=== PATIENT | male | born 1970 | race Caucasian/White ===

== ENCOUNTER → 2016-06-28 | Outpatient (CLI) | payer OTHER ==
[~2016-06-28] MED LIST: ATV1HP PO; BSP15 PO; CARB1CAP8 PO; CUREL TOP; FBR PO; LACT10SO17; LACT10SO61 PO; LAMO200T38 PO; LEVE500T PO; LEVE500T13 PO; NYSCR30 TOP; PRNJ PO; SERT-234 PO; SODICRE2 PO; TGR200 PO; ZLF/100 PO; ZSRP TOP; [UNRECOGNIZED DRUG - OTHER] PO
== END | disposition home or self-care (01) ==
LOC: C.FOODA 13:32
PROVIDERS: ATTEND Family Medicine
DX: E66.9 Obesity, unspecified (principal)

== ENCOUNTER → 2016-07-31 | Outpatient (CLI) | payer OTHER ==
[2016-07-31 09:33] LABS: BASO % 0.2 %; BASO ABS # 0.01 K/uL (0-0.2); COMPLETE YES; EOS % 2.2 %; IG% 0.4 %; LYMPH % 35.3 %; LYMPH ABS # 1.59 K/uL (1.2-3.4); MEAN CELL VOLUME 88.6 fL (80-100); MEAN CORPUSCULAR HEMOGLOBIN 29.9 pg (25-34); MEAN CORPUSCULAR HGB CONC 33.7 g/dl (32-36); MEAN PLATELET VOLUME 9.1 fL (7.4-10.4); NEUT % 51.9 %; PLATELET COUNT 216 K/uL (130-400); RED BLOOD COUNT 5.19 M/uL (4.7-6.1); WHITE BLOOD COUNT 4.51 K/uL (4.8-10.8)
[2016-07-31 09:43] LABS: ALT/SGPT 28 U/L (12-78); BLOOD UREA NITROGEN 9 mg/dl (7-18); BUN/CREATININE RATIO 9.9 (10-20); CALCIUM 9.2 mg/dl (8.5-10.1); CARBON DIOXIDE 29 mmol/L (21-32); CHLORIDE 103 mmol/L (98-107); CREATININE 0.89 mg/dl (0.60-1.40); GLUCOSE 88 mg/dl (70-99); POTASSIUM 4.2 mmol/L (3.5-5.1); SODIUM 139 mmol/L (136-145)
[2016-07-31 09:46] LABS: ALKALINE PHOSPHATASE 118 U/L (45-117); AST/SGOT 22 U/L (15-37)
== END | disposition home or self-care (01) ==
LOC: C.LAB 07:27
PROVIDERS: ATTEND Psychiatry & Neurology Neurology
DX: G40.909 Epilepsy, unspecified, not intractable, without status epilepticus (principal)

== ENCOUNTER → 2016-09-03 | Outpatient (CLI) | payer OTHER | END | disposition home or self-care (01) | LOC: C.LABSPEC 13:15 | PROVIDERS: ATTEND Dermatology | DX: L98.9 Disorder of the skin and subcutaneous tissue, unspecified (principal) ==

== ENCOUNTER → 2016-09-06 | Outpatient (CLI) | payer OTHER | END | disposition home or self-care (01) | LOC: C.FOODA 13:37 | PROVIDERS: ATTEND Family Medicine | DX: E63.9 Nutritional deficiency, unspecified (principal) ==

== ENCOUNTER → 2016-11-29 | Outpatient (CLI) | payer OTHER | END | disposition home or self-care (01) | LOC: C.FOODA 13:01 | PROVIDERS: ATTEND Family Medicine | DX: E63.9 Nutritional deficiency, unspecified (principal) ==

== ENCOUNTER → 2017-01-16 | Outpatient (CLI) | payer OTHER ==
[2017-01-16 09:38] LABS: BASO % 0.4 %; BASO ABS # 0.02 K/uL (0-0.2); COMPLETE YES; EOS % 2.2 %; HEMATOCRIT 46.5 % (42-52); IG% 0.7 %; LYMPH % 42.9 %; LYMPH ABS # 1.92 K/uL (1.2-3.4); MEAN CELL VOLUME 89.6 fL (80-100); MEAN CORPUSCULAR HGB CONC 34.6 g/dl (32-36); MEAN PLATELET VOLUME 8.9 fL (7.4-10.4); MONO % 8.5 %; NEUT % 45.3 %; PLATELET COUNT 223 K/uL (130-400); RED BLOOD COUNT 5.19 M/uL (4.7-6.1); WHITE BLOOD COUNT 4.48 K/uL (4.8-10.8)
[2017-01-16 09:49] LABS: ALT/SGPT 29 U/L (12-78); BLOOD UREA NITROGEN 12 mg/dl (7-18); BUN/CREATININE RATIO 12.9 (10-20); CALCIUM 9.3 mg/dl (8.5-10.1); CARBON DIOXIDE 29 mmol/L (21-32); CHLORIDE 103 mmol/L (98-107); CREATININE 0.96 mg/dl (0.60-1.40); GLUCOSE 85 mg/dl (70-99); POTASSIUM 4.1 mmol/L (3.5-5.1); SODIUM 137 mmol/L (136-145)
[2017-01-16 09:59] LABS: ALB/GLOB RATIO 0.9 (0.9-2); ALKALINE PHOSPHATASE 104 U/L (45-117); AST/SGOT 19 U/L (15-37)
== END | disposition home or self-care (01) ==
LOC: C.LAB 07:21
PROVIDERS: ATTEND Psychiatry & Neurology Neurology
DX: G40.909 Epilepsy, unspecified, not intractable, without status epilepticus (principal)

== ENCOUNTER 2017-01-28 18:29 | Emergency (ER) | payer OTHER ==
[~2017-01-28] VITALS: Ht 162.6 cm; Wt 88.1 kg
[~2017-01-28 18:29] MED LIST changes: -CUREL TOP; -LACT10SO61 PO; -LEVE500T PO; -NYSCR30 TOP; -TGR200 PO; -ZLF/100 PO; -[UNRECOGNIZED DRUG - OTHER] PO
[2017-01-28 18:40] VITALS: Ht 162.6 cm; Wt 88.1 kg
[2017-01-28] MEDS ORDERED: LEVETIRACETAM 500 MG TAB PO STA ×2 (18:46→20:12)
[2017-01-28] MEDS ORDERED: CARBAMAZEPINE 200 MG TAB PO ONE (19:00)
--- NOTE | 2017-01-28 19:29 | DIAGNOSTIC IMAGING REPORT ---
CT HEAD WITHOUT CONTRAST (CT) CLINICAL HISTORY: Seizure. Head trauma. COMPARISON STUDY: 09/29/2015 TECHNIQUE: Axial CT of the brain is performed from the vertex to the skull base. IV contrast was not administered for this examination. A dose lowering technique was utilized adhering to the principles of ALARA. CT DOSE: 1277.67 mGy.cm FINDINGS: No intra or extra-axial mass lesions are visualized. There is no CT evidence of acute cortical infarction. There is no evidence of midline shift. There is no acute hemorrhage. No calvarial fractures are visualized. There is bifrontal and by occipital encephalomalacia. There is no evidence of pathologic ventricular dilatation. There is no evidence of acute sinusitis. There is a right parietal scalp hematoma. IMPRESSION: 1. 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 Right parietal scalp hematoma 3. No evidence of acute intracranial injury Electronically signed by: Lopez Rodriguez M.D. 01/28/2017 7:28 PM Dictated Date/Time: 01/28/2017 7:26 PM
[2017-01-28 20:08] VITALS: BP 130/89; PULSE 106; TEMP 36.7; O2SAT 98
[2017-01-28] MEDS ORDERED: ZLF/100 PO (20:38)
[2017-01-28] MEDS ORDERED: LACT10SO61 PO (20:38)
[2017-01-28] MEDS ORDERED: LEVE500T PO (20:38)
[2017-01-28] MEDS ORDERED: TGR200 PO (20:38)
[2017-01-28] MEDS ORDERED: BSP15 PO ×3 (20:38)
[2017-01-28] MEDS ORDERED: [UNRECOGNIZED DRUG - OTHER] PO (20:42)
[2017-01-28] MEDS ORDERED: CUREL TOP (20:49)
[2017-01-28] MEDS ORDERED: NYSCR30 TOP (20:49)
--- NOTE | 2017-01-28 21:49 | EMERGENCY ROOM VISIT NOTE ---
History Report prepared by Rina: Connor Barriga Under the Supervision of: Dr. Cr Denis M.D. First contact with patient: 18:37 Stated Complaint: SEIZURE History of Present Illness The patient is a 46 year old male who presents to the Emergency Room with complaints of a sudden seizure that occurred at 174. Per nursing, the patient is from [facility] where he had a seizure. Nursing reports that he has a history of seizures, which he typically takes Lamictal and Keppra for. She reports that the patient was due for his daily dose at 1800, but had a seizure before he could take his medications. The patient is accompanied by a [employer] skills worker who states that she was tending another patient when she heard him fall in his room. She states that she went to go check what happened when she found him on the bathroom floor. The skills worker reports that she went to put her hand behind his head when he turned stiff, clenched his chest with his left arm, started seizing, and his eyes started twitching. She states that the seizure lasted for 35 to 45 seconds, which is the longest seizure she witnessed him have. She reports that she is unaware of his last seizure. Nursing states that he hit his head on the partition in the bathroom and bit his tongue. Nursing states that he normally has a history of self- injurious behavior due to a history of developmental delay which is often triggered by anxiety. She states that since the seizure he has been hitting the back of his his head. Nursing states that he was given 2 mg of Ativan IM on his way via EMS. The patient has a history of being blind and mute, but is not deaf. The [employer] worker denies that the patient has had a fever or changing of medications. The HPI is limited due to the patient's condition of being mute. Source of History: caregiver, nursing staff History Limited By: other (mute) Onset: 1741 Position: other (Global) Quality: other (seizure) Timing: resolved Associated Symptoms: No fevers, No vomiting Review of Systems The ROS is limited due to the patient's condition of being mute. Past Medical & Surgical Medical Problems: (1) Anxiety disorder (2) Cortical blindness (3) Hearing loss (4) History of skin abscesses (5) Hyperlipidemia (6) Migraines (7) MR (8) Obesity (9) Optic atrophy (10) Pulse control disorder (11) Recurrent acne (12) Seizure disorder Family History Patient reports no known family medical history. Social History Smoking Status: Never Smoker Marital Status: single Housing Status: other Occupation Status: disabled Current/Historical Medications Scheduled Aldioxa/Cellulose/Chloroxylen (Zeasorb), 1 APPLN TOP QAM Buspirone HCl (Buspirone HCl), 15 MG PO QD@0800 Buspirone HCl (Buspirone HCl), 15 MG PO QD@1500 Buspirone HCl (Buspirone HCl), 30 MG PO QD@1900 Carbamazepine (Carbamazepine), 400 MG PO BID Lactulose (Encephalopathy) (Enulose), 2 TBS PO QAM Lamotrigine (Lamictal), 400 MG PO BID Levetiractam (Levetiracetam), 500 MG PO BID Sertraline HCl (Sertraline HCl), 200 MG PO QAM Sodium Fluoride (Dental) (Denta 5000 Plus), 1 DOSE PO BID [Fiber-Lax Captabs], 1,000 MG PO BID Scheduled PRN Lorazepam (Lorazepam), 1 MG PO UD PRN for Pretreat Dental Appointment Nystatin (Nystatin Cream), 1 APPLN TOP TID PRN for Yeast Infection [Curel Lotion], 1 APPLN TOP BID PRN for Dry Skin Allergies Coded Allergies: No Known Allergies (Unverified , 09/29/15) Physical Exam Vital Signs Date Time Temp Pulse Resp B/P (MAP) Pulse Ox O2 Delivery O2 Flow Rate FiO2 01/28/17 20:08 36.7 106 18 130/89 98 Room Air 01/28/17 18:40 97 21 141/94 98 Room Air Physical Exam Constitutional: Vital signs reviewed. Eyes: Pupils are equal and round. Conjunctiva are noninjected. ENT: Limited due to lack of cooperation. Neck supple without meningeal signs. Hematoma with abrasion to right occipital Respiratory: Clear to auscultation bilaterally. Breath sounds are equal bilaterally. Cardiovascular: Regular rate and rhythm. No rubs or gallops. GI: Soft, nondistended and nontender. Bowel sounds are present. Musculoskeletal: No peripheral edema. Abrasion to right trapezius. Integumentary: No cyanosis. Neurological: The patient is awake and alert. He keeps slapping his left arm with his right arm. Psychiatric: Unable to assess. Medical Decision & Procedures ER Provider Diagnostic Interpretation: CT results as stated below per my review and radiologist interpretation. CT HEAD WITHOUT CONTRAST (CT) CLINICAL HISTORY: Seizure. Head trauma. COMPARISON STUDY: 09/29/2015 TECHNIQUE: Axial CT of the brain is performed from the vertex to the skull base. IV contrast was not administered for this examination. A dose lowering technique was utilized adhering to the principles of ALARA. CT DOSE: 1277.67 mGy.cm FINDINGS: No intra or extra-axial mass lesions are visualized. There is no CT evidence of acute cortical infarction. There is no evidence of midline shift. There is no acute hemorrhage. No calvarial fractures are visualized. There is bifrontal and by occipital encephalomalacia. There is no evidence of pathologic ventricular dilatation. There is no evidence of acute sinusitis. There is a right parietal scalp hematoma. IMPRESSION: 1. 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 Right parietal scalp hematoma 3. No evidence of acute intracranial injury Electronically signed by: Lopez Rodriguez M.D. 01/28/2017 7:28 PM Dictated Date/Time: 01/28/2017 7:26 PM Medications Administered Medications (Trade) Dose Ordered Sig/Nasra Route Start Time Stop Time Status Last Admin Dose Admin Carbamazepine (Tegretol Tab) 400 mg NOW ONCE PO 01/28/17 19:00 01/28/17 19:01 DC 01/28/17 19:03 400 MG Lamotrigine (Lamictal Tab) 400 mg ONE STAT PO 01/28/17 18:46 01/28/17 18:48 DC 01/28/17 19:03 400 MG Levetiracetam (Keppra Tab) 500 mg NOW STAT PO 01/28/17 18:46 01/28/17 18:48 DC 01/28/17 19:03 500 MG Diphenhydramine HCl (Benadryl Cap) 50 mg NOW ONCE PO 01/28/17 19:15 01/28/17 19:16 DC 01/28/17 19:32 50 MG Levetiracetam (Keppra Tab) 500 mg NOW STAT PO 01/28/17 20:12 01/28/17 20:13 DC 01/28/17 20:23 500 MG ED Course 1846: Ordered Keppra Tab 500 mg PO and Lamictal Tab 400 mg PO. 1846: The patient was evaluated in room B06. A complete history and physical exam was performed. 1899: Ordered Tegretol Tab 400 mg PO. 1914: I reevaluated the patient now that the [employer] skills worker arrived. She reported the patient's history to me. I performed another physical exam with better cooperation from the patient. 1914: Ordered Benadryl Cap 50 mg PO. 1933: I discussed the test result with skills worker and the patient is calm. 2004: I discussed the patient's case with Dr. Gayle, [facility]. He suggests that I give the patient and extra dose of Keppra and increase his dosage to 750 mg BID. 2010: Upon reevaluation, the patient appeared to have improvement of his symptoms. I discussed tonight's findings with the patient and the skills worker. They verbalized agreement of the treatment plan. The patient was discharged home. 2011: Ordered Keppra Tab 500 mg PO. Medical Decision This is a 46-year-old male who presents with a seizure and head injury. Differential diagnosis includes intracranial hemorrhage, skull fracture, medication noncompliance, breakthrough seizure, concussion. I did perform a limited focused review of portions of the patient's old chart on the electronic medical record. The patient has had a recent visit on January 16 with unremarkable blood work, including Keppra and Lamictal levels of 5.1 and 10.4 respectively and a Carbamazepine level of 8.3. I did evaluate the patient as noted above. History and exam is somewhat limited due to lack of cooperation. I did treat the patient with oral Keppra, Lamictal and carbamazepine. He was also given Benadryl to help accommodate a CT scan. Seizure precautions were observed. I did order a CT of the head. I did review the images myself as well as the radiology report as described above. There is no evidence of intracranial hemorrhage. I did discuss the case with Dr. Gayle of neurology. He recommended increasing his Keppra to 750 twice a day and giving him an extra dose of 500 tonight. The patient was given an additional 500 mg of Keppra. He was discharged back to his longterm with his caregiver. Instructions were given in writing to the longterm. He will follow up with his doctor. Medication Reconcilliation Current Medication List: was personally reviewed by me Blood Pressure Screening Patient's blood pressure: Elevated blood pressure Blood pressure disposition: Elevated BP felt to be situational Consults Time Called: 2004 Consulting Physician: Dr. Gayle, [facility] Returned Call: 2004 I discussed the patient's case with Dr. Gayle, [facility]. He suggests that I give the patient and extra dose of Keppra and increase his dosage to 750 mg BID. Impression Primary Impression: Seizure Additional Impression: Acute head injury Scribe Attestation The scribe's documentation has been prepared under my direct and personally reviewed by me in its entirety. I confirm that the note above accurately reflects all work, treatment, procedures, and medical decision making performed by me. Departure Information Dispostion Home / Self-Care Referrals Fernando Mendez D.O.[facility] (PCP) Forms HOME CARE DOCUMENTATION FORM, IMPORTANT VISIT INFORMATION Patient Instructions ED Head Injury Closed, ED Seizure Recurrent, My [facility] Additional Instructions You have been examined and treated today on an emergency basis only. This is not a substitute for, or an effort to provide, complete comprehensive medical care. It is impossible to recognize and treat all injuries or illnesses in a single emergency department visit. It is therefore important that you follow up closely with your physician. Call as soon as possible for an appointment. Return for worsening symptoms or if you develop fever, vomiting, significant change in mental status or any other concerning symptoms. He was given his evening carbamazepine, Keppra and Lamictal. You may give all other evening meds. Increase his Keppra to 750 twice a day. Keep doses of carbamazepine and Lamictal the same. Problem Qualifiers Additional Impression: Acute head injury Encounter type: initial encounter Qualified Codes: S09.90XA - Unspecified injury of head, initial encounter
== END 2017-01-28 20:45 | disposition home or self-care (01) ==
LOC: EDBD 18:29 → C.EDB 18:31
DX: G40.909 Epilepsy, unspecified, not intractable, without status epilepticus (principal); S09.90XA Unspecified injury of head, initial encounter; W19.XXXA Unspecified fall, initial encounter; E78.5 Hyperlipidemia, unspecified; F41.9 Anxiety disorder, unspecified; Z79.899 Other long term (current) drug therapy

== ENCOUNTER → 2017-02-12 | Outpatient (CLI) | payer OTHER ==
[~2017-02-12] MED LIST changes: -CARB1CAP8 PO; +CUREL TOP; -FBR PO; -LACT10SO17; +LACT10SO61 PO; +LEVE500T PO; -LEVE500T13 PO; +NYSCR30 TOP; -PRNJ PO; -SERT-234 PO; +TGR200 PO; +ZLF/100 PO; +[UNRECOGNIZED DRUG - OTHER] PO
== END | disposition home or self-care (01) ==
LOC: C.LAB 07:47
PROVIDERS: ATTEND Physician Assistant
DX: G40.909 Epilepsy, unspecified, not intractable, without status epilepticus (principal)

== ENCOUNTER → 2017-06-03 | Outpatient (CLI) | payer OTHER ==
[~2017-06-03] MED LIST changes: +LAMO200T35 PO; -LAMO200T38 PO
[2017-06-03 09:40] LABS: BASO % 0.2 %; BASO ABS # 0.01 K/uL (0-0.2); COMPLETE YES; EOS % 2.3 %; HEMATOCRIT 47.3 % (42-52); IG% 0.6 %; LYMPH ABS # 1.75 K/uL (1.2-3.4); MEAN CELL VOLUME 89.6 fL (80-100); MEAN CORPUSCULAR HEMOGLOBIN 30.9 pg (25-34); MEAN CORPUSCULAR HGB CONC 34.5 g/dl (32-36); MEAN PLATELET VOLUME 9.7 fL (7.4-10.4); MONO % 8.2 %; NEUT % 52.7 %; PLATELET COUNT 225 K/uL (130-400); RED BLOOD COUNT 5.28 M/uL (4.7-6.1); WHITE BLOOD COUNT 4.86 K/uL (4.8-10.8)
[2017-06-03 10:08] LABS: ALT/SGPT 26 U/L (12-78); AST/SGOT 18 U/L (15-37); BLOOD UREA NITROGEN 12 mg/dl (7-18); BUN/CREATININE RATIO 13.6 (10-20); CALCIUM 8.7 mg/dl (8.5-10.1); CARBON DIOXIDE 30 mmol/L (21-32); CHLORIDE 99 mmol/L (98-107); CREATININE 0.86 mg/dl (0.60-1.40); GLUCOSE 85 mg/dl (70-99); POTASSIUM 3.8 mmol/L (3.5-5.1); SODIUM 133 mmol/L (136-145)
[2017-06-03 10:10] LABS: ALKALINE PHOSPHATASE 105 U/L (45-117)
== END | disposition home or self-care (01) ==
LOC: C.LAB 07:15
PROVIDERS: ATTEND Psychiatry & Neurology Neurology
DX: G40.909 Epilepsy, unspecified, not intractable, without status epilepticus (principal)

== ENCOUNTER → 2017-07-16 | Outpatient (CLI) | payer OTHER ==
[2017-07-16 09:53] LABS: ALBUMIN 4.2 gm/dl (3.4-5.0); ALT/SGPT 25 U/L (12-78); BLOOD UREA NITROGEN 10 mg/dl (7-18); CALCIUM 9.1 mg/dl (8.5-10.1); CARBON DIOXIDE 30 mmol/L (21-32); GLUCOSE 101 mg/dl (70-99); POTASSIUM 3.8 mmol/L (3.5-5.1); SODIUM 133 mmol/L (136-145)
[2017-07-16 10:04] LABS: ALKALINE PHOSPHATASE 112 U/L (45-117); AST/SGOT 20 U/L (15-37); TOTAL PROTEIN 8.6 gm/dl (6.4-8.2)
== END | disposition home or self-care (01) ==
LOC: C.LAB 07:42
PROVIDERS: ATTEND Psychiatry & Neurology Neurology
DX: G40.909 Epilepsy, unspecified, not intractable, without status epilepticus (principal)

== ENCOUNTER → 2017-08-15 | Outpatient (CLI) | payer OTHER | END | disposition home or self-care (01) | LOC: C.FOODA 13:43 | PROVIDERS: ATTEND Family Medicine | DX: E63.9 Nutritional deficiency, unspecified (principal); E66.9 Obesity, unspecified; Z68.32 Body mass index [BMI] 32.0-32.9, adult; Z71.3 Dietary counseling and surveillance ==

== ENCOUNTER → 2018-01-15 | Outpatient (CLI) | payer OTHER | END | disposition home or self-care (01) | LOC: C.LAB 07:18 | PROVIDERS: ATTEND Psychiatry & Neurology Neurology | DX: G40.909 Epilepsy, unspecified, not intractable, without status epilepticus (principal) ==

== ENCOUNTER → 2018-01-30 | Outpatient (CLI) | payer OTHER ==
[2018-01-30 12:14] LABS: BASO % 0.2 %; BASO ABS # 0.01 K/uL (0-0.2); EOS % 1.7 %; EOS ABS # 0.08 K/uL (0-0.5); HEMATOCRIT 44.2 % (42-52); HEMOGLOBIN 15.4 g/dL (14.0-18.0); IG# 0.03 K/uL (0.00-0.02); LYMPH % 33.5 %; LYMPH ABS # 1.55 K/uL (1.2-3.4); MEAN CELL VOLUME 88.9 fL (80-100); MEAN CORPUSCULAR HGB CONC 34.8 g/dl (32-36); MEAN PLATELET VOLUME 8.7 fL (7.4-10.4); MONO % 10.4 %; MONO ABS # 0.48 K/uL (0.11-0.59); NEUT % 53.6 %; NEUT ABS # 2.47 K/uL (1.4-6.5); PLATELET COUNT 212 K/uL (130-400); RED CELL DISTRIBUTION WIDTH CV 13.5 % (11.5-14.5); WHITE BLOOD COUNT 4.62 K/uL (4.8-10.8)
== END | disposition home or self-care (01) ==
LOC: C.LAB 10:48
PROVIDERS: ATTEND Physician Assistant
DX: Z79.899 Other long term (current) drug therapy (principal); N39.46 Mixed incontinence

== ENCOUNTER 2023-01-16 16:56 | Observation (INO) ==
[2023-01-16] MEDS ORDERED: SODIUM CHLORIDE 0.9% 1000ML 1,000 ML IV ONE (17:24)
--- NOTE | 2023-01-16 17:24 | ED Triage Note ---
Date of Service January 16, 2023 History of Present Illness This patient was briefly evaluated while in triage. An abbreviated physical exam was performed. This patient is a 52-year-old Male who presents to the ED from [facility] for evaluation of fever and tremors in the left side of his body. Staff from [facility] reports that the tremor is new for him and that he has been putting his hands to his head which usually means he is in pain. Physical Exam VITALS: Vitals are noted on the nurse's note and reviewed by myself. GENERAL: This is a 52-year-old male, sitting in wheelchair in triage. SKIN: The skin was without rashes. MOUTH: Mucus membranes dry. HEART: Regular rate and rhythm without murmurs gallops or rubs. LUNGS: Clear to auscultation bilaterally without wheezes, rales or rhonchi. ABDOMEN: Positive bowel sounds x 4. Soft, nondistended. NEURO: Patient is nonverbal which is his baseline according to accompanying staff. Initial orders for labs and / or imaging were placed and patient was placed in the waiting area until a bed is available. Please see further documentation for the full ED course.
--- NOTE | 2023-01-16 18:15 | Emergency Department Note ---
Impression & Plan Fever, Acute UTI (urinary tract infection), Gait instability, SIRS (systemic inflammatory response syndrome) ED Provider Note HISTORY OF PRESENT ILLNESS: Patient is a 52-year-old male presenting with fever. Patient is nonverbal at baseline secondary to intellectual disability and his caretakers at his home provide history. Reports that the patient was acting more lethargic today than his normal. They noted that his temperature was elevated and his fever continued throughout the day. He was last given Tylenol at 1500 today. Reports that over the last 24 hours the patient has had multiple episodes of urinary incontinence. They report that today the patient seemed to be having full body tremors described as rigors. He was also having difficulties ambulating with his elevated temperature. No reported sick contact exposures. No rashes. No nausea, vomiting or diarrhea. ROS: as above PHYSICAL EXAM: Constitutional: Patient appears in no distress. HENT: Head: Normocephalic and atraumatic. Eyes: EOMI, PERRL Mouth/Throat: Mucous membranes moist. Neck: Trachea midline. Neck supple. Cardiovascular: Tachycardic with regular rhythm. No murmurs, rubs or gallops. Intact distal pulses. Pulmonary/Chest: No respiratory distress. Breath sounds clear and equal bilaterally. No wheezes or rales. Abdominal: Abdomen soft, no tenderness, rebound or guarding. Musculoskeletal: No edema, tenderness or deformity noted. Skin: Warm and dry. No rash, erythema, pallor or cyanosis Neurological: Alert. CN II-XII grossly intact. Moves all extremities spontaneously. MDM: - Vitals signs showed fever and tachycardia - History obtained via patient's caretakers, given his nonverbal status. Patient presents with fever and gait instability. Caretakers reports that the patient was more lethargic today than his normal self. They noted that he had recurrent fever throughout the day. He was last given Tylenol at 1500. Reports the patient has multiple episodes of urinary incontinence over the last 24 hours. They report he was noted to be very unstable on his feet today and was having notable rigors. - Chronic conditions affecting care: nonverbal; HLD; seizure disorder - Differential diagnoses include, but are not limited to: UTI; pneumonia; bacteremia; viral syndrome - Order placed for continuous cardiac monitoring. At this time, monitor showed rate of 111 bpm with normal sinus rhythm, per my interpretation. - External medical records reviewed. Primary care note from 10/05/2022 was reviewed. Patient is noted to have balance issues and frequent falls on PCP note - Laboratory workup interpreted by myself showed leukocytosis (WBC 11.75); slight hyponatremia (Na 132); normal lactate - Respiratory viral panel negative - UA obtained via straight cath shows evidence of infection. - Blood cultures obtained. - CXR negative for pneumonia, per my interpretation. - CT abdomen/pelvis wo contrast showed findings concerning for cystitis - Patient given 1L NS, and 1g IV rocephin - Discussion was had with social psychologist about patient's case and need for admission - Hospitalist, Dr. Bradley, consulted for admission - Patient admitted to [facility] service for further evaluation and management. ASSESSMENT AND PLAN: Diagnosis: Fever; tachycardia; SIRS; UTI; gait instability Plan: admit Past Med/Surg History Medical History (Updated 01/16/23 @ 23:30 by Suly Saenz MD) Acquired intellectual disability Anxiety Cortical blindness Cyst ON SCALP Depression Diverticulitis Epilepsy Gastritis GERD (gastroesophageal reflux disease) Hearing deficit Hiatal hernia History of seizure Date of last seizure unknown, information obtained by nurse from [facility] records Hyperlipidemia Impulse control disorder Microcephaly Nonverbal History provided by [facility] facility Strabismus Surgical History History of colonoscopy History of esophagogastroduodenoscopy (EGD) No history of previous surgery Family History Other Family history of diabetes mellitus Heart disease Unknown family medical history Social History Smoking Status: Unknown if ever smoked Second Hand Exposure: No; Do You Dip or Chew Tobacco: No; Hx Alcohol Use: No Hx Substance Use: No Preferred Language: Frisian Communication Ability: Impaired Communication Tools: Physical Gestures Visual Impairment: Blindness Hearing Ability: Normal 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 Beliefs That Will Affect Care: None marital status: Single Current Living Situation: Personal Care Facility Current Living Situation Comment: [facility] current occupational status: unemployed and disabled Feels Safe at Home: Yes Childhood Exposure to Second-Hand Smoke: No Diet: other Diet Comment: Chopped caffeine: No during the past year weight has: increased > 10 lbs Dental Care, Regularly: Yes Physical Activity Frequency: 1-2 Times per Week Seatbelt Use: always Sunscreen Use: Yes Assistive Devices: Wheelchair Allergies Allergies Allergy/AdvReac Type Severity Reaction Status Date / Time NSAIDS (Non-Steroidal AdvReac Intermediate Gastrointestinal Verified 01/16/23 19:33 Anti-Inflamma Upset Home Meds Home Medications Medication Instructions Recorded Confirmed fluoxetine 40 mg capsule 80 mg PO QPM 01/01/20 01/16/23 lorazepam 2 mg tablet 2 mg PO DIRECTED PRN 05/05/20 01/16/23 premedication for Dentist lorazepam 0.5 mg tablet 0.5 mg PO BID 10/04/20 01/16/23 buspirone 15 mg tablet See Rx Instructions .Route .COMPLEX 11/02/21 01/16/23 fluoride (sodium) 1.1 % dental 1 applic dental BID 11/02/21 01/16/23 cream (Denta 5000 Plus) acetaminophen 500 mg tablet 500 mg PO Q6H PRN Fever Or Pain 07/04/22 01/16/23 (Tylenol Extra Strength) lorazepam 1 mg tablet (Ativan) 1 mg sublingual DIRECTED PRN 07/04/22 01/16/23 before blood work docusate sodium 100 mg capsule 100 mg PO TIDM 01/16/23 01/16/23 lamotrigine 200 mg tablet 400 mg PO BIDM 01/16/23 01/16/23 levetiracetam 750 mg tablet 750 mg PO BIDM 01/16/23 01/16/23 magnesium hydroxide 400 mg/5 mL 15 ml PO DAILY PRN stomach upset 01/16/23 01/16/23 oral suspension (Milk of Magnesia) neomycin-bacitracn Zn-polymyx 3.5 1 applic topical TID PRN NEEDED 01/16/23 01/16/23 mg-400 unit-5,000 unit/gram top FOR SCRATCHES/WOUNDS oint (Triple Antibiotic) pantoprazole 40 mg tablet,delayed 40 mg PO QAM 01/16/23 01/16/23 release sodium chloride 1,000 mg soluble 1,000 mg PO BIDM 01/16/23 01/16/23 tablet Previous Rx's Medication Instructions Recorded Highback manual wheelchair #1 ea 08/31/21 Wheelchair (Manual) (Manual #1 ea 08/31/21 Wheelchair) Batsheva Sling #1 ea 09/14/22 Batsheva lift #1 ea 09/20/22 atorvastatin 10 mg tablet 10 mg PO QPM #90 tabs 11/20/22 carbamazepine 200 mg tablet 400 mg PO BIDM #120 tabs 11/20/22 famotidine 40 mg tablet 40 mg PO HS #90 tabs 11/20/22 lactulose 10 gram/15 mL oral 30 ml PO TID Constipation #2,700 mL 11/27/22 solution psyllium husk 3 gram/5.4 gram oral 1 tbsp PO DAILY@1500 #284 grams 11/27/22 powder (Reguloid (psyllium husk)) miconazole nitrate 2 % topical 1 applic topical BID #85 grams 11/28/22 powder (Remedy Phytoplex Antifungal) Neosporin Plus Pain Relief 3.5 1 applic topical TID PRN 12/12/22 mg-10,000 unit-10 mg/gram topical disinfection #28.3 grams cream (zqeuaasz-eqedifruo-lglnvfcqj) glycerin (adult) (Fleet Glycerin 1 supp MN DIRECTED PRN 12/12/22 (Adult) rectal suppository) Constipation #25 ea menthol 0.44 %-zinc oxide 20.6 % 1 applic topical QID PRN skin 12/12/22 topical ointment (Calmoseptine) irritation #113 grams Results & Data (ED) Vital Signs Vital Signs - 24 hr 01/16/23 17:18 01/16/23 18:24 01/16/23 18:19 Temperature 39.5 C H Temperature Source Oral Pulse Rate 111 H 112 H Pulse Rate [Apical] Respiratory Rate 24 Respiratory Effort / Characteristics Non-Labored Spontaneous Respiratory Depth Normal Blood Pressure 106/64 135/71 Blood Pressure [Left Arm] Blood Pressure Mean 78 92 Blood Pressure Mean [Left Arm] Pulse Oximetry 96 Oxygen Delivery Method Room Air Sepsis Recent Fever Within 48 Hours Yes Sepsis New/Unexplained Change in Mental Status N/A Sepsis Action Taken by Nursing No Action Required 01/16/23 18:20 01/16/23 18:30 01/16/23 18:30 Temperature Temperature Source Pulse Rate 112 H 115 H Pulse Rate [Apical] Respiratory Rate 20 16 Respiratory Effort / Characteristics Respiratory Depth Blood Pressure 134/100 Blood Pressure [Left Arm] Blood Pressure Mean 111 Blood Pressure Mean [Left Arm] Pulse Oximetry Oxygen Delivery Method Sepsis Recent Fever Within 48 Hours Sepsis New/Unexplained Change in Mental Status Sepsis Action Taken by Nursing 01/16/23 19:00 01/16/23 19:30 01/16/23 19:30 Temperature Temperature Source Pulse Rate 121 H 115 H Pulse Rate [Apical] Respiratory Rate 20 21 Respiratory Effort / Characteristics Respiratory Depth Blood Pressure 143/87 H Blood Pressure [Left Arm] Blood Pressure Mean 105 Blood Pressure Mean [Left Arm] Pulse Oximetry Oxygen Delivery Method Sepsis Recent Fever Within 48 Hours Sepsis New/Unexplained Change in Mental Status Sepsis Action Taken by Nursing 01/16/23 20:00 01/16/23 20:00 01/16/23 21:10 Temperature Temperature Source Pulse Rate 117 H Pulse Rate [Apical] 110 H Respiratory Rate 20 18 Respiratory Effort / Characteristics Respiratory Depth Blood Pressure 137/82 Blood Pressure [Left Arm] 137/95 Blood Pressure Mean 100 Blood Pressure Mean [Left Arm] 109 Pulse Oximetry 97 Oxygen Delivery Method Room Air Sepsis Recent Fever Within 48 Hours Sepsis New/Unexplained Change in Mental Status Sepsis Action Taken by Nursing 01/16/23 20:30 01/16/23 21:00 01/16/23 21:00 Temperature Temperature Source Pulse Rate 116 H 112 H Pulse Rate [Apical] Respiratory Rate 14 16 Respiratory Effort / Characteristics Respiratory Depth Blood Pressure 137/95 Blood Pressure [Left Arm] Blood Pressure Mean 109 Blood Pressure Mean [Left Arm] Pulse Oximetry Oxygen Delivery Method Sepsis Recent Fever Within 48 Hours Sepsis New/Unexplained Change in Mental Status Sepsis Action Taken by Nursing 01/16/23 21:30 01/16/23 21:30 01/16/23 22:00 Temperature Temperature Source Pulse Rate 116 H 114 H Pulse Rate [Apical] Respiratory Rate 16 18 Respiratory Effort / Characteristics Respiratory Depth Blood Pressure 126/88 Blood Pressure [Left Arm] Blood Pressure Mean 100 Blood Pressure Mean [Left Arm] Pulse Oximetry Oxygen Delivery Method Sepsis Recent Fever Within 48 Hours Sepsis New/Unexplained Change in Mental Status Sepsis Action Taken by Nursing 01/16/23 22:30 01/16/23 22:51 01/16/23 23:09 Temperature Temperature Source Pulse Rate 117 H 109 H Pulse Rate [Apical] 110 H Respiratory Rate 20 18 Respiratory Effort / Characteristics Respiratory Depth Normal Blood Pressure Blood Pressure [Left Arm] 144/109 H Blood Pressure Mean Blood Pressure Mean [Left Arm] 120 Pulse Oximetry 97 Oxygen Delivery Method Room Air Sepsis Recent Fever Within 48 Hours Sepsis New/Unexplained Change in Mental Status Sepsis Action Taken by Nursing Laboratory Data 01/16/23 17:10 01/16/23 17:10 Lab Results 01/16/23 01/16/23 01/16/23 Range/Units 17:10 17:10 17:10 WBC 11.75 H (4.8-10.8) K/ul RBC 4.42 L (4.70-6.10) M/uL Hgb 13.3 L (14.0-18.0) g/dl Hct 39.2 L (42.0-52.0) % MCV 88.7 (80.0-100.0) fL MCH 30.1 (25.0-34.0) pg MCHC 33.9 (32.0-36.0) g/dL RDW Std Deviation 45.1 (36.4-46.3) fL RDW Coeff of Kenzie 13.9 (11.5-14.5) % Plt Count 182 (130-400) K/uL MPV 8.3 L (9.4-12.4) fL Immature Gran % (Auto) 0.7 % Neut % (Auto) 87.2 % Lymph % (Auto) 4.4 % Gilchrist % (Auto) 7.5 % Eos % (Auto) 0.0 % Baso % (Auto) 0.2 % Neut # (Auto) 10.25 H (1.40-6.50) K/uL Lymph # (Auto) 0.52 L (1.2-3.4) K/uL Gilchrist # (Auto) 0.88 H (0.11-0.59) K/uL Eos # (Auto) 0.00 (0-0.50) K/uL Baso # (Auto) 0.02 (0-0.2) K/uL Immature Gran # (Auto) 0.08 (0.01-0.20) K/uL Sodium 132 L (136-145) mmol/L Potassium 4.0 (3.5-5.1) mmol/L Chloride 99 (98-107) mmol/L Carbon Dioxide 25 (21-32) mmol/L Anion Gap 8 (3-11) BUN 16 (6-23) mg/dl Creatinine 0.98 (0.6-1.4) mg/dl Est Cr Clr Drug Dosing Not Reportable Est GFR ( Amer) 103.8 ml/min Est GFR (Non-Af Amer) 89.5 ml/min BUN/Creatinine Ratio 16.3 (10-20) Glucose 129 H (70-99(Fasting)) mg/dl Lactate (0.4-2.0) mmol/L Calcium 9.0 (8.6-10.3) mg/dl Magnesium 2.1 (1.7-2.4) mg/dl Total Bilirubin 0.3 (0.2-1.0) mg/dl AST 21 (13-39) U/L ALT 18 (7-52) U/L Alkaline Phosphatase 111 H (34-104) U/L Total Protein 7.9 (6.0-8.3) gm/dl Albumin 4.2 (3.4-5.0) gm/dl Globulin 3.7 (2.5-4.0) gm/dl Albumin/Globulin Ratio 1.1 (0.9-2) Procalcitonin (0-0.5) ng/ml Urine Color Urine Appearance (Clear) Urine pH (4.5-7.5) Ur Specific [place] (1.000-1.030) Urine Protein (Negative) Urine Glucose (UA) (Negative) Urine Ketones (Negative) Urine Blood (Negative) Urine Nitrite (Negative) Urine Bilirubin (Negative) Urine Urobilinogen (Negative) Ur Leukocyte Esterase (Negative) Urine WBC (Auto) (0-5) /hpf Urine RBC (Auto) (0-4) /hpf U Hyaline Cast (Auto) (0-5) /lpf U Epithel Cells (Auto) (0-5) /lpf Urine Bacteria (Auto) (Negative) Adenovirus (PCR) (NotDetected) B. pertussis DNA (PCR) (NotDetected) B.parapertussis DNA PCR (NotDetected) C. pneumoniae DNA (PCR) (NotDetected) Coronavirus OC43 (PCR) (NotDetected) Coronavirus HKU1 (PCR) (NotDetected) Coronavirus 229E (PCR) (NotDetected) SARS-CoV-2 (PCR) (NotDetected) Coronavirus NL63 (PCR) (NotDetected) Human Metapneumovir PCR (NotDetected) Influenza Type A (PCR) (NotDetected) Influenza Type B (PCR) (NotDetected) M. pneumoniae (PCR) (NotDetected) Parainfluenza 1 (PCR) (NotDetected) Parainfluenza 2 (PCR) (NotDetected) Parainfluenza 3 (PCR) (NotDetected) Parainfluenza 4 (PCR) (NotDetected) RSV (PCR) (NotDetected) Entero/Rhino (PCR) (NotDetected) 01/16/23 01/16/23 01/16/23 Range/Units 17:40 17:40 17:40 WBC (4.8-10.8) K/ul RBC (4.70-6.10) M/uL Hgb (14.0-18.0) g/dl Hct (42.0-52.0) % MCV (80.0-100.0) fL MCH (25.0-34.0) pg MCHC (32.0-36.0) g/dL RDW Std Deviation (36.4-46.3) fL RDW Coeff of Kenzie (11.5-14.5) % Plt Count (130-400) K/uL MPV (9.4-12.4) fL Immature Gran % (Auto) % Neut % (Auto) % Lymph % (Auto) % Gilchrist % (Auto) % Eos % (Auto) % Baso % (Auto) % Neut # (Auto) (1.40-6.50) K/uL Lymph # (Auto) (1.2-3.4) K/uL Gilchrist # (Auto) (0.11-0.59) K/uL Eos # (Auto) (0-0.50) K/uL Baso # (Auto) (0-0.2) K/uL Immature Gran # (Auto) (0.01-0.20) K/uL Sodium (136-145) mmol/L Potassium (3.5-5.1) mmol/L Chloride (98-107) mmol/L Carbon Dioxide (21-32) mmol/L Anion Gap (3-11) BUN (6-23) mg/dl Creatinine (0.6-1.4) mg/dl Est Cr Clr Drug Dosing Est GFR ( Amer) ml/min Est GFR (Non-Af Amer) ml/min BUN/Creatinine Ratio (10-20) Glucose (70-99(Fasting)) mg/dl Lactate 1.4 (0.4-2.0) mmol/L Calcium (8.6-10.3) mg/dl Magnesium (1.7-2.4) mg/dl Total Bilirubin (0.2-1.0) mg/dl AST (13-39) U/L ALT (7-52) U/L Alkaline Phosphatase (34-104) U/L Total Protein (6.0-8.3) gm/dl Albumin (3.4-5.0) gm/dl Globulin (2.5-4.0) gm/dl Albumin/Globulin Ratio (0.9-2) Procalcitonin 0.25 (0-0.5) ng/ml Urine Color Urine Appearance (Clear) Urine pH (4.5-7.5) Ur Specific [place] (1.000-1.030) Urine Protein (Negative) Urine Glucose (UA) (Negative) Urine Ketones (Negative) Urine Blood (Negative) Urine Nitrite (Negative) Urine Bilirubin (Negative) Urine Urobilinogen (Negative) Ur Leukocyte Esterase (Negative) Urine WBC (Auto) (0-5) /hpf Urine RBC (Auto) (0-4) /hpf U Hyaline Cast (Auto) (0-5) /lpf U Epithel Cells (Auto) (0-5) /lpf Urine Bacteria (Auto) (Negative) Adenovirus (PCR) Not Detected (NotDetected) B. pertussis DNA (PCR) Not Detected (NotDetected) B.parapertussis DNA PCR Not Detected (NotDetected) C. pneumoniae DNA (PCR) Not Detected (NotDetected) Coronavirus OC43 (PCR) Not Detected (NotDetected) Coronavirus HKU1 (PCR) Not Detected (NotDetected) Coronavirus 229E (PCR) Not Detected (NotDetected) SARS-CoV-2 (PCR) Not Detected (NotDetected) Coronavirus NL63 (PCR) Not Detected (NotDetected) Human Metapneumovir PCR Not Detected (NotDetected) Influenza Type A (PCR) Not Detected (NotDetected) Influenza Type B (PCR) Not Detected (NotDetected) M. pneumoniae (PCR) Not Detected (NotDetected) Parainfluenza 1 (PCR) Not Detected (NotDetected) Parainfluenza 2 (PCR) Not Detected (NotDetected) Parainfluenza 3 (PCR) Not Detected (NotDetected) Parainfluenza 4 (PCR) Not Detected (NotDetected) RSV (PCR) Not Detected (NotDetected) Entero/Rhino (PCR) Not Detected (NotDetected) 01/16/23 Range/Units 18:59 WBC (4.8-10.8) K/ul RBC (4.70-6.10) M/uL Hgb (14.0-18.0) g/dl Hct (42.0-52.0) % MCV (80.0-100.0) fL MCH (25.0-34.0) pg MCHC (32.0-36.0) g/dL RDW Std Deviation (36.4-46.3) fL RDW Coeff of Kenzie (11.5-14.5) % Plt Count (130-400) K/uL MPV (9.4-12.4) fL Immature Gran % (Auto) % Neut % (Auto) % Lymph % (Auto) % Gilchrist % (Auto) % Eos % (Auto) % Baso % (Auto) % Neut # (Auto) (1.40-6.50) K/uL Lymph # (Auto) (1.2-3.4) K/uL Gilchrist # (Auto) (0.11-0.59) K/uL Eos # (Auto) (0-0.50) K/uL Baso # (Auto) (0-0.2) K/uL Immature Gran # (Auto) (0.01-0.20) K/uL Sodium (136-145) mmol/L Potassium (3.5-5.1) mmol/L Chloride (98-107) mmol/L Carbon Dioxide (21-32) mmol/L Anion Gap (3-11) BUN (6-23) mg/dl Creatinine (0.6-1.4) mg/dl Est Cr Clr Drug Dosing Est GFR ( Amer) ml/min Est GFR (Non-Af Amer) ml/min BUN/Creatinine Ratio (10-20) Glucose (70-99(Fasting)) mg/dl Lactate (0.4-2.0) mmol/L Calcium (8.6-10.3) mg/dl Magnesium (1.7-2.4) mg/dl Total Bilirubin (0.2-1.0) mg/dl AST (13-39) U/L ALT (7-52) U/L Alkaline Phosphatase (34-104) U/L Total Protein (6.0-8.3) gm/dl Albumin (3.4-5.0) gm/dl Globulin (2.5-4.0) gm/dl Albumin/Globulin Ratio (0.9-2) Procalcitonin (0-0.5) ng/ml Urine Color Dark Yellow Urine Appearance Cloudy A (Clear) Urine pH 6.0 (4.5-7.5) Ur Specific [place] 1.039 H (1.000-1.030) Urine Protein 2+ H (Negative) Urine Glucose (UA) Negative (Negative) Urine Ketones 1+ H (Negative) Urine Blood 3+ H (Negative) Urine Nitrite Negative (Negative) Urine Bilirubin Negative (Negative) Urine Urobilinogen Negative (Negative) Ur Leukocyte Esterase 2+ H (Negative) Urine WBC (Auto) >30 H (0-5) /hpf Urine RBC (Auto) >30 H (0-4) /hpf U Hyaline Cast (Auto) 0 (0-5) /lpf U Epithel Cells (Auto) >30 H (0-5) /lpf Urine Bacteria (Auto) Negative (Negative) Adenovirus (PCR) (NotDetected) B. pertussis DNA (PCR) (NotDetected) B.parapertussis DNA PCR (NotDetected) C. pneumoniae DNA (PCR) (NotDetected) Coronavirus OC43 (PCR) (NotDetected) Coronavirus HKU1 (PCR) (NotDetected) Coronavirus 229E (PCR) (NotDetected) SARS-CoV-2 (PCR) (NotDetected) Coronavirus NL63 (PCR) (NotDetected) Human Metapneumovir PCR (NotDetected) Influenza Type A (PCR) (NotDetected) Influenza Type B (PCR) (NotDetected) M. pneumoniae (PCR) (NotDetected) Parainfluenza 1 (PCR) (NotDetected) Parainfluenza 2 (PCR) (NotDetected) Parainfluenza 3 (PCR) (NotDetected) Parainfluenza 4 (PCR) (NotDetected) RSV (PCR) (NotDetected) Entero/Rhino (PCR) (NotDetected) Administered Medications Discontinued Medications Sodium Chloride (Nss 1000ml) 1,000 mls @ 999 mls/hr IV .Q1H1M ONE Stop: 01/16/23 18:24 Last Infusion: 01/16/23 19:49 Dose: 0 mls/hr Documented By: Admin: 01/16/23 18:20 Dose: 999 mls/hr Documented By: GREGORIO Ceftriaxone Sodium 1,000 mg/ (Dextrose) 50 mls @ 100 mls/hr IV NOW STA Stop: 01/16/23 21:36 Last Infusion: 01/16/23 23:18 Dose: 0 mls/hr Documented By: Admin: 01/16/23 22:19 Dose: 100 mls/hr Documented By: GREGORIO Imaging Data Radiologist's Impression: Chest X-Ray 01/16/23 17:24 XR chest 1V portable CLINICAL HISTORY: Fever. COMPARISON STUDY: Chest radiograph September 11, 2022. FINDINGS: Exam is mildly compromised given difficulty positioning. Lung volumes are normal. Lungs are clear. There is no pneumothorax or pleural effusion. Cardiac size is normal. Mediastinal contours are normal. There is no evidence for pulmonary edema. IMPRESSION: No acute cardiopulmonary findings. Exam mildly compromised given difficulty positioning. ACT 112: Negative or not required by law. Electronically signed by: Henok Rosenthal M.D. 01/16/2023 6:40 PM Abdomen/Pelvis CT 01/16/23 21:12 Exam(s): CT ABDOMEN + PELVIS Without Contrast EXAM: CT Abdomen and Pelvis Without Intravenous Contrast CLINICAL HISTORY: Reason for exam: fever; UTI. TECHNIQUE: Axial computed tomography images of the abdomen and pelvis without intravenous contrast. Automated exposure control was utilized for the study. A dose lowering technique was utilized adhering to the principles of ALARA. COMPARISON: Comparison made to prior CT scan of the abdomen and pelvis from September 11, 2022. FINDINGS: Lung bases: Unremarkable. No mass. No consolidation. ABDOMEN: Liver: Hepatic steatosis. Gallbladder and bile ducts: Unremarkable. No calcified stones. No ductal dilation. Pancreas: Unremarkable. No ductal dilation. Spleen: Unremarkable. No splenomegaly. Adrenals: Unremarkable. No mass. Kidneys and ureters: Unremarkable. No obstructing stones. No hydronephrosis. Stomach and bowel: Unremarkable. No obstruction. No mucosal thickening. PELVIS: Appendix: No findings to suggest acute appendicitis. Bladder: Unremarkable. No stones. Reproductive: Unremarkable as visualized. ABDOMEN and PELVIS: Intraperitoneal space: Unremarkable. No free air. No significant fluid collection. Bones/joints: No acute fracture. No dislocation. Soft tissues: Moderate bilateral fat-containing inguinal hernias. Vasculature: Unremarkable. No abdominal aortic aneurysm. Lymph nodes: Unremarkable. No enlarged lymph nodes. IMPRESSION: There is mild thickening of the urinary bladder wall with inflammation of the surrounding fat, which can be seen with cystitis. Recommend correlation with UA. Hepatic steatosis. Electronically signed by: Pauline Fitzpatrick MD 01/16/23 22:32 PM Discharge Plan Visit Data Chief Complaint: Fever Stated Complaint: FEVER,NOT ACTING LIKE HIMSELF,NOT EATING ED Provider: Suly Saenz Discharge Problem: Fever, Acute UTI (urinary tract infection), Gait instability, SIRS (systemic inflammatory response syndrome) Forms Stand Alone Forms: [facility] [employer] Prescriptions Prescriptions: No Action (DME) Manual Wheelchair Device See Rx Instructions .Route Qty: 1 0RF Rx Instructions: As directed (DME) Highback manual wheelchair See Rx Instructions .Route .MEDSUPPLY Qty: 1 0RF Rx Instructions: As directed (DME) Batsheva Sling See Rx Instructions .Route .MEDSUPPLY Qty: 1 0RF Rx Instructions: As directed (DME) Batsheva lift See Rx Instructions .Route .MEDSUPPLY Qty: 1 0RF Rx Instructions: As directed atorvastatin 10 mg tablet 10 mg PO QPM Qty: 90 1RF carbamazepine 200 mg tablet 400 mg PO BIDM Qty: 120 5RF Rx Instructions: ADMINISTER AT 0800 AND 1900 HOURS WITH FOOD famotidine 40 mg tablet 40 mg PO HS Qty: 90 1RF lactulose 10 gram/15 mL solution 30 ml PO TID Qty: 2700 11RF Reguloid (psyllium husk) 3 gram/5.4 gram powder 1 tbsp PO DAILY@1500 Qty: 284 2RF Rx Instructions: Mix 1 tablespoon in 8 ounces of applesauce and take by mouth daily for constipation. Remedy Phytoplex Antifungal 2 % powder 1 applic topical BID Qty: 85 2RF Rx Instructions: Please apply at 7AM and 7PM Neosporin Plus Pain Relief 3.5-10,000-10 mg-unit-mg/gram cream 1 applic topical TID PRN (Reason: disinfection) Qty: 28.3 5RF glycerin (adult) [Fleet Glycerin (Adult)] Suppository 1 supp MN DIRECTED PRN (Reason: Constipation) Qty: 25 0RF Rx Instructions: If no BM in 48hrs, insert 1 supp MN by the 49th hr of no BM. Retain supp for 15min. repeat in 12hrs if no BM. Calmoseptine 0.44-20.6 % ointment 1 applic topical QID PRN (Reason: skin irritation) Qty: 113 5RF Rx Instructions: Apply a thin layer in the inguinal crease bilaterally to help prevent skin breakdown lorazepam 0.5 mg tablet 0.5 mg PO BID Patient Comments: take at 8 AM and 3 PM Rx Instructions: TAKES 0800 & 1500 buspirone 15 mg tablet See Rx Instructions .ROUTE .COMPLEX Rx Instructions: TAKES 15 MG AT 0800 & 1500, THEN 30 MG AT 1900. fluoride (sodium) [Denta 5000 Plus] 1.1 % cream 1 applic dental BID lorazepam 2 mg tablet 2 mg PO DIRECTED PRN (Reason: premedication for Dentist) fluoxetine 40 mg capsule 80 mg PO QPM acetaminophen [Tylenol Extra Strength] 500 mg Tablet 500 mg PO Q6H PRN (Reason: Fever Or Pain) lorazepam [Ativan] 1 mg Tablet 1 mg sublingual DIRECTED PRN (Reason: before blood work) Rx Instructions: 60 min before blood draw prn Triple Antibiotic 3.5mg-400 unit- 5,000 unit/gram Ointment 1 applic TOPICAL TID PRN (Reason: NEEDED FOR SCRATCHES/WOUNDS) sodium chloride 1,000 mg Tablet,Soluble 1,000 mg PO BIDM lamotrigine 200 mg tablet 400 mg PO BIDM Rx Instructions: TAKE 2 TABLETS (400MG) BY MOUTH TWICE DAILY WITH FOOD FOR SEIZURE DISORDER magnesium hydroxide [Milk of Magnesia] 400 mg/5 mL suspension 15 ml PO DAILY PRN (Reason: stomach upset) pantoprazole 40 mg tablet,delayed release (DR/EC) 40 mg PO QAM Rx Instructions: TAKE 1 TABLET BY MOUTH ONCE DAILY (DX: GERD) docusate sodium 100 mg capsule 100 mg PO TIDM Rx Instructions: TAKE 1 CAPSULE BY MOUTH THREE TIMES DAILY WITH FOOD (DX: CONSTIPATION) levetiracetam 750 mg tablet 750 mg PO BIDM Rx Instructions: TAKE ONE TABLET BY MOUTH TWICE DAILY WITH FOOD FOR SEIZURE DISORDER Referrals Referrals: Carlton Haynes DO [Primary Care Provider] -
[2023-01-16 18:22] LABS: Basophils # (auto) 0.02 K/uL (0-0.2); Basophils % (auto) 0.2 %; Hematocrit (blood only) 39.2 % (42.0-52.0); Hemoglobin 13.3 g/dl (14.0-18.0); Immature Granulocytes # (auto) 0.08 K/uL (0.01-0.20); Immature Granulocytes % (auto) 0.7 %; Lymphocytes # (auto) 0.52 K/uL (1.2-3.4); Lymphocytes % (auto) 4.4 %; Mean Corpuscular Hemoglobin 30.1 pg (25.0-34.0); Mean Corpuscular Hgb Conc 33.9 g/dL (32.0-36.0); Mean Corpuscular Volume 88.7 fL (80.0-100.0); Mean Platelet Volume 8.3 fL (9.4-12.4); Monocytes # (auto) 0.88 K/uL (0.11-0.59); Monocytes % (auto) 7.5 %; Neutrophils # (auto) 10.25 K/uL (1.40-6.50); Neutrophils % (auto) 87.2 %; Platelet Count 182 K/uL (130-400); RDW Coefficient of Variation 13.9 % (11.5-14.5); RDW Standard Deviation 45.1 fL (36.4-46.3); Red Blood Count 4.42 M/uL (4.70-6.10); White Blood Count 11.75 K/ul (4.8-10.8)
[2023-01-16 18:33] LABS: Alanine Aminotransferase 18 U/L (7-52); Albumin Globulin Ratio 1.1 (0.9-2); Albumin Level 4.2 gm/dl (3.4-5.0); Alkaline Phosphatase 111 U/L (34-104); Anion Gap 8 (3-11); Aspartate Aminotransferase 21 U/L (13-39); BUN Creatinine Ratio 16.3 (10-20); Bilirubin,Total 0.3 mg/dl (0.2-1.0); Blood Urea Nitrogen 16 mg/dl (6-23); Carbon Dioxide 25 mmol/L (21-32); Chloride 99 mmol/L (98-107); Est GFR (African American) 103.8 ml/min; Est GFR (Non-African American) 89.5 ml/min; Globulin 3.7 gm/dl (2.5-4.0); Glucose 129 mg/dl (70-99(Fasting)); Sodium 132 mmol/L (136-145); Total Protein 7.9 gm/dl (6.0-8.3)
--- NOTE | 2023-01-16 18:41 | XRay Report ---
XR chest 1V portable CLINICAL HISTORY: Fever. COMPARISON STUDY: Chest radiograph September 11, 2022. FINDINGS: Exam is mildly compromised given difficulty positioning. Lung volumes are normal. Lungs are clear. There is no pneumothorax or pleural effusion. Cardiac size is normal. Mediastinal contours ar e normal. There is no evidence for pulmonary edema. IMPRESSION: No acute cardiopulmonary findings. Exam mildly compromised given difficulty positioning. ACT 112: Negative or not required by law. Electronically signed by: Henok Rosenthal M.D. 01/16/2023 6:40 PM
[2023-01-16 19:10] LABS: Adenovirus PCR Not Detected (NotDetected); Bordetella parapertussis PCR Not Detected (NotDetected); Bordetella pertussis PCR Not Detected (NotDetected); Chlamydia pneumoniae PCR Not Detected (NotDetected); Coronavirus 229E PCR Not Detected (NotDetected); Coronavirus CoV-2 (COVID19)PCR Not Detected (NotDetected); Coronavirus HKU1 PCR Not Detected (NotDetected); Coronavirus NL63 PCR Not Detected (NotDetected); Coronavirus OC43PCR Not Detected (NotDetected); Human Metapneumovirus PCR Not Detected (NotDetected); Influenza A PCR Not Detected (NotDetected); Influenza B PCR Not Detected (NotDetected); Mycoplasma pneumoniae PCR Not Detected (NotDetected); Parainfluenza Virus 1 PCR Not Detected (NotDetected); Parainfluenza Virus 2 PCR Not Detected (NotDetected); Parainfluenza Virus 3 PCR Not Detected (NotDetected); Parainfluenza Virus 4 PCR Not Detected (NotDetected); Respiratory Syncytial VirusPCR Not Detected (NotDetected); Rhinovirus/Enterovirus PCR Not Detected (NotDetected)
[2023-01-16 19:17] LABS: Appearance Urine Cloudy (Clear); Bacteria Urine Automated Negative (Negative); Bilirubin Urine Negative (Negative); Blood Urine 3+ (Negative); Color Urine Dark Yellow; Epithelial Cell Urine Auto >30 /lpf (0-5); Glucose Urine UA Negative (Negative); Ketones Urine 1+ (Negative); Leukocyte Esterase Urine 2+ (Negative); Nitrite Urine Negative (Negative); Protein Urine 2+ (Negative); RBC Urine Automated >30 /hpf (0-4); Specific Gravity Urine 1.039 (1.000-1.030); Urobilinogen Urine Negative (Negative); WBC Urine Automated >30 /hpf (0-5)
[2023-01-16 19:39] LABS: Cast Urine Automated 0 /lpf (0-5)
[2023-01-16] MEDS ORDERED: cefTRIAXone SODIUM 1,000 MG in DEXTROSE 5% AD-VAN 50 ML IV STA (21:07)
--- NOTE | 2023-01-16 22:33 | CT Scan Report ---
Exam(s): CT ABDOMEN + PELVIS Without Contrast EXAM: CT Abdomen and Pelvis Without Intravenous Contrast CLINICAL HISTORY: Reason for exam: fever; UTI. TECHNIQUE: Axial computed tomography images of the abdomen and pelvis without intravenous contrast. Automated exposure control was utilized for the study. A dose lowering technique was utilized adhering to the principles of ALARA. COMPARISON: Comparison made to prior CT scan of the abdomen and pelvis from September 11, 2022. FINDINGS: Lung bases: Unremarkable. No mass. No consolidation. ABDOMEN: Liver: Hepatic steatosis. Gallbladder and bile ducts: Unremarkable. No calcified stones. No ductal dilation. Pancreas: Unremarkable. No ductal dilation. Spleen: Unremarkable. No splenomegaly. Adrenals: Unremarkable. No mass. Kidneys and ureters: Unremarkable. No obstructing stones. No hydronephrosis. Stomach and bowel: Unremarkable. No obstruction. No mucosal thickening. PELVIS: Appendix: No findings to suggest acute appendicitis. Bladder: Unremarkable. No stones. Reproductive: Unremarkable as visualized. ABDOMEN and PELVIS: Intraperitoneal space: Unremarkable. No free air. No significant fluid collection. Bones/joints: No acute fracture. No dislocation. Soft tissues: Moderate bilateral fat-containing inguinal hernias. Vasculature: Unremarkable. No abdominal aortic aneurysm. Lymph nodes: Unremarkable. No enlarged lymph nodes. IMPRESSION: There is mild thickening of the urinary bladder wall with inflammation of the surrounding fat, which can be seen with cystitis. Recommend correlation with UA. Hepatic steatosis. Electronically signed by: Pauline Fitzpatrick MD 01/16/23 22:32 PM
[2023-01-16] MEDS ORDERED: FLUoxetine HCL 20 MG CAP PO ONE (23:01)
[2023-01-16] MEDS ORDERED: DOCUSATE SODIUM 100 MG CAP PO ONE (23:01)
[2023-01-16] MEDS ORDERED: busPIRone 15 MG TAB PO ONE (23:01)
[2023-01-16] MEDS ORDERED: carBAMazepine 200 MG TABLET PO ONE (23:01)
[2023-01-16] MEDS ORDERED: FAMOTIDINE 40 MG TABLET PO ONE (23:01)
[2023-01-16] MEDS ORDERED: lamoTRIgine 100 MG TAB PO ONE (23:04)
[2023-01-16] MEDS ORDERED: levETIRAcetam 250 MG TAB PO ONE (23:05)
--- NOTE | 2023-01-16 23:13 | History & Physical Report ---
Date of Service January 16, 2023 Assessment & Plan (1) Optic atrophy: (2) Seizure: (3) Microcephalus: (4) Impulse control disorder: (5) Enuresis: (6) Urinary incontinence: (7) Acute UTI (urinary tract infection): (8) Acquired intellectual disability: Plan Urinary tract infection/febrile illness/urinary incontinence/enuresis- CT scan abdomen and pelvis has bladder wall thickening suggestive of cystitis Urinalysis looks positive Follow urine culture and sensitivity Ceftriaxone 2 g IV daily NSS + KCl 20 mill equivalents at 60 mils per hour x1 L Microcephalus/impulse control disorder/anxiety with depression/acquired intellectual disability/epilepsy- Continue routine medications: Buspirone, carbamazepine, fluoxetine, lamotrigine, levetiracetam, lorazepam Prescribed 1 on 1 sitter, unless caretakers are present during the day GERD- Continue pantoprazole Continue all other medications as noted History of Present Illness Chief Complaint: The patient was noted by his caretakers to be less interactive, and had a temperature throughout the day Primary Care Provider: Carlton Haynes DO The patient is a 52-year-old male with past medical history including microcephalus, impulse control disorder, hearing loss, GERD, enuresis, cortical blindness, anxiety disorder, acquired intellectual disability, epilepsy, gait disturbance, recurrent urinary tract infection, gait instability and SIRS. 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 They note that he also had multiple episodes of urinary incontinence overnight, and had multiple episodes of tremors intermittently throughout the day today. The patient himself is unable to contribute to HPI or review of systems Allergies Allergy/AdvReac Type Severity Reaction Status Date / Time NSAIDS (Non-Steroidal AdvReac Intermediate Gastrointestinal Verified 01/16/23 19:33 Anti-Inflamma Upset Home Medications Medication Instructions Recorded Confirmed Type fluoxetine 40 mg capsule 80 mg PO QPM 01/01/20 01/16/23 History lorazepam 2 mg tablet 2 mg PO DIRECTED PRN 05/05/20 01/16/23 History premedication for Dentist lorazepam 0.5 mg tablet 0.5 mg PO BID 10/04/20 01/16/23 History Highback manual wheelchair #1 ea 08/31/21 10/16/22 Rx Wheelchair (Manual) (Manual #1 ea 08/31/21 10/16/22 Rx Wheelchair) buspirone 15 mg tablet See Rx Instructions .Route .COMPLEX 11/02/21 01/16/23 History fluoride (sodium) 1.1 % dental 1 applic dental BID 11/02/21 01/16/23 History cream (Denta 5000 Plus) acetaminophen 500 mg tablet 500 mg PO Q6H PRN Fever Or Pain 07/04/22 01/16/23 History (Tylenol Extra Strength) lorazepam 1 mg tablet (Ativan) 1 mg sublingual DIRECTED PRN 07/04/22 01/16/23 History before blood work Batsheva Sling #1 ea 09/14/22 10/16/22 Rx Batsheva lift #1 ea 09/20/22 10/16/22 Rx atorvastatin 10 mg tablet 10 mg PO QPM #90 tabs 11/20/22 01/16/23 Rx carbamazepine 200 mg tablet 400 mg PO BIDM #120 tabs 11/20/22 01/16/23 Rx famotidine 40 mg tablet 40 mg PO HS #90 tabs 11/20/22 01/16/23 Rx lactulose 10 gram/15 mL oral 30 ml PO TID Constipation #2,700 mL 11/27/22 01/16/23 Rx solution psyllium husk 3 gram/5.4 gram oral 1 tbsp PO DAILY@1500 #284 grams 11/27/22 01/16/23 Rx powder (Reguloid (psyllium husk)) miconazole nitrate 2 % topical 1 applic topical BID #85 grams 11/28/22 01/16/23 Rx powder (Remedy Phytoplex Antifungal) Neosporin Plus Pain Relief 3.5 1 applic topical TID PRN 12/12/22 01/16/23 Rx mg-10,000 unit-10 mg/gram topical disinfection #28.3 grams cream ([id number]-[id number]) glycerin (adult) (Fleet Glycerin 1 supp PA DIRECTED PRN 12/12/22 01/16/23 Rx (Adult) rectal suppository) Constipation #25 ea menthol 0.44 %-zinc oxide 20.6 % 1 applic topical QID PRN skin 12/12/22 01/16/23 Rx topical ointment (Calmoseptine) irritation #113 grams docusate sodium 100 mg capsule 100 mg PO TIDM 01/16/23 01/16/23 History lamotrigine 200 mg tablet 400 mg PO BIDM 01/16/23 01/16/23 History levetiracetam 750 mg tablet 750 mg PO BIDM 01/16/23 01/16/23 History magnesium hydroxide 400 mg/5 mL 15 ml PO DAILY PRN stomach upset 01/16/23 01/16/23 History oral suspension (Milk of Magnesia) neomycin-bacitracn Zn-polymyx 3.5 1 applic topical TID PRN NEEDED 01/16/23 01/16/23 History mg-400 unit-5,000 unit/gram top FOR SCRATCHES/WOUNDS oint (Triple Antibiotic) pantoprazole 40 mg tablet,delayed 40 mg PO QAM 01/16/23 01/16/23 History release sodium chloride 1,000 mg soluble 1,000 mg PO BIDM 01/16/23 01/16/23 History tablet Past Med/Surg History Medical History (Updated 01/16/23 @ 23:30 by Suly Saenz MD) Acquired intellectual disability Anxiety Cortical blindness Cyst ON SCALP Depression Diverticulitis Epilepsy Gastritis GERD (gastroesophageal reflux disease) Hearing deficit Hiatal hernia History of seizure Date of last seizure unknown, information obtained by nurse from [facility] Hyperlipidemia Impulse control disorder Microcephaly Nonverbal History provided by [facility] Strabismus Surgical History History of colonoscopy History of esophagogastroduodenoscopy (EGD) No history of previous surgery Family History Other Family history of diabetes mellitus Heart disease Unknown family medical history Social History Smoking Status: Unknown if ever smoked Second Hand Exposure: No; Do You Dip or Chew Tobacco: No; Hx Alcohol Use: No Hx Substance Use: No Preferred Language: Andorran Communication Ability: Impaired Communication Tools: Physical Gestures Visual Impairment: Blindness Hearing Ability: Normal Electrical Apprentice Required: No Beliefs That Will Affect Care: None marital status: Single Current Living Situation: Personal Care Facility Current Living Situation Comment: [facility] current occupational status: unemployed and disabled Feels Safe at Home: Yes Childhood Exposure to Second-Hand Smoke: No Diet: other Diet Comment: Chopped caffeine: No during the past year weight has: increased > 10 lbs Dental Care, Regularly: Yes Physical Activity Frequency: 1-2 Times per Week Seatbelt Use: always Sunscreen Use: Yes Assistive Devices: Wheelchair Review of Systems Review of Systems: Review of systems is provided by caretakers Physical Exam Physical Exam: The patient is awake, unresponsive, has intermittent episodes of agitation, otherwise lying in bed and in no acute distress. HEENT--PERRL, EOMI, mucous membranes and oropharynx dry. Neck--supple. No JVD. No bruits. Thyroid normal, trachea midline, no adenopathy. Heart--normal S1 and S2. No murmurs, rubs or gallops. Lungs--clear bilaterally, no respiratory distress, no accessory muscle use. Abdomen--normal bowel sounds and soft. Nontender. Nondistended Extremities--No edema. Dermatologic--normal skin turgor, normal color, no abnormal lymph nodes, no rash. Neurologic--limited exam Rheumatologic--limited exam Psychiatric--unresponsive. Results & Data Results & Data Vital Signs (Past 12 Hours) Vital Signs Temp Pulse Pulse Resp BP BP Pulse Ox 01/16/23 23:09 110 H 18 144/109 H 97 01/16/23 22:51 109 H 01/16/23 22:30 117 H 20 01/16/23 22:00 114 H 18 01/16/23 21:30 116 H 16 01/16/23 21:30 126/88 01/16/23 21:00 112 H 16 01/16/23 21:00 137/95 01/16/23 20:30 116 H 14 01/16/23 21:10 110 H 18 137/95 97 01/16/23 20:00 117 H 20 01/16/23 20:00 137/82 01/16/23 19:30 115 H 21 01/16/23 19:30 143/87 H 01/16/23 19:00 121 H 20 01/16/23 18:30 115 H 16 01/16/23 18:30 134/100 01/16/23 18:20 112 H 20 08/02/23 18:19 135/71 01/16/23 18:24 112 H 01/16/23 17:18 39.5 C H 111 H 24 106/64 96 O2 Del Method 01/16/23 23:09 Room Air 01/16/23 22:51 01/16/23 22:30 01/16/23 22:00 01/16/23 21:30 01/16/23 21:30 01/16/23 21:00 01/16/23 21:00 01/16/23 20:30 01/16/23 21:10 Room Air 01/16/23 20:00 01/16/23 20:00 01/16/23 19:30 01/16/23 19:30 01/16/23 19:00 01/16/23 18:30 01/16/23 18:30 01/16/23 18:20 01/16/23 18:19 01/16/23 18:24 01/16/23 17:18 Room Air Laboratory Results Laboratory Results WBC 11.75 K/ul (4.8-10.8) H 01/16/23 17:10 RBC 4.42 M/uL (4.70-6.10) L 01/16/23 17:10 Hgb 13.3 g/dl (14.0-18.0) L 01/16/23 17:10 Hct 39.2 % (42.0-52.0) L 01/16/23 17:10 MCV 88.7 fL (80.0-100.0) 01/16/23 17:10 MCH 30.1 pg (25.0-34.0) 01/16/23 17:10 MCHC 33.9 g/dL (32.0-36.0) 01/16/23 17:10 RDW Std Deviation 45.1 fL (36.4-46.3) 01/16/23 17:10 RDW Coeff of Kenzie 13.9 % (11.5-14.5) 01/16/23 17:10 Plt Count 182 K/uL (130-400) 01/16/23 17:10 MPV 8.3 fL (9.4-12.4) L 01/16/23 17:10 Immature Gran % (Auto) 0.7 % 01/16/23 17:10 Neut % (Auto) 87.2 % 01/16/23 17:10 Lymph % (Auto) 4.4 % 01/16/23 17:10 [place] % (Auto) 7.5 % 01/16/23 17:10 Eos % (Auto) 0.0 % 01/16/23 17:10 Baso % (Auto) 0.2 % 01/16/23 17:10 Neut # (Auto) 10.25 K/uL (1.40-6.50) H 01/16/23 17:10 Lymph # (Auto) 0.52 K/uL (1.2-3.4) L 01/16/23 17:10 [place] # (Auto) 0.88 K/uL (0.11-0.59) H 01/16/23 17:10 Eos # (Auto) 0.00 K/uL (0-0.50) 01/16/23 17:10 Baso # (Auto) 0.02 K/uL (0-0.2) 01/16/23 17:10 Immature Gran # (Auto) 0.08 K/uL (0.01-0.20) 01/16/23 17:10 Sodium 132 mmol/L (136-145) L 01/16/23 17:10 Potassium 4.0 mmol/L (3.5-5.1) 01/16/23 17:10 Chloride 99 mmol/L (98-107) 01/16/23 17:10 Carbon Dioxide 25 mmol/L (21-32) 01/16/23 17:10 Anion Gap 8 (3-11) 01/16/23 17:10 BUN 16 mg/dl (6-23) 01/16/23 17:10 Creatinine 0.98 mg/dl (0.6-1.4) 01/16/23 17:10 Est Cr Clr Drug Dosing Not Reportable 01/16/23 17:10 Est GFR ( Amer) 103.8 ml/min 01/16/23 17:10 Est GFR (Non-Af Amer) 89.5 ml/min 01/16/23 17:10 BUN/Creatinine Ratio 16.3 (10-20) 01/16/23 17:10 Glucose 129 mg/dl (70-99(Fasting)) H 01/16/23 17:10 Lactate 1.4 mmol/L (0.4-2.0) 01/16/23 17:40 Calcium 9.0 mg/dl (8.6-10.3) 01/16/23 17:10 Magnesium 2.1 mg/dl (1.7-2.4) 01/16/23 17:10 Total Bilirubin 0.3 mg/dl (0.2-1.0) 01/16/23 17:10 AST 21 U/L (13-39) 01/16/23 17:10 ALT 18 U/L (7-52) 01/16/23 17:10 Alkaline Phosphatase 111 U/L (34-104) H 01/16/23 17:10 Total Protein 7.9 gm/dl (6.0-8.3) 01/16/23 17:10 Albumin 4.2 gm/dl (3.4-5.0) 01/16/23 17:10 Globulin 3.7 gm/dl (2.5-4.0) 01/16/23 17:10 Albumin/Globulin Ratio 1.1 (0.9-2) 01/16/23 17:10 Procalcitonin 0.25 ng/ml (0-0.5) 01/16/23 17:40 Urine Color Dark Yellow 01/16/23 18:59 Urine Appearance Cloudy (Clear) A 01/16/23 18:59 Urine pH 6.0 (4.5-7.5) 01/16/23 18:59 Ur Specific [place] 1.039 (1.000-1.030) H 01/16/23 18:59 Urine Protein 2+ (Negative) H 01/16/23 18:59 Urine Glucose (UA) Negative (Negative) 01/16/23 18:59 Urine Ketones 1+ (Negative) H 01/16/23 18:59 Urine Blood 3+ (Negative) H 01/16/23 18:59 Urine Nitrite Negative (Negative) 01/16/23 18:59 Urine Bilirubin Negative (Negative) 01/16/23 18:59 Urine Urobilinogen Negative (Negative) 01/16/23 18:59 Ur Leukocyte Esterase 2+ (Negative) H 01/16/23 18:59 Urine WBC (Auto) >30 /hpf (0-5) H 01/16/23 18:59 Urine RBC (Auto) >30 /hpf (0-4) H 01/16/23 18:59 U Hyaline Cast (Auto) 0 /lpf (0-5) 01/16/23 18:59 U Epithel Cells (Auto) >30 /lpf (0-5) H 01/16/23 18:59 Urine Bacteria (Auto) Negative (Negative) 01/16/23 18:59 Adenovirus (PCR) Not Detected (NotDetected) 01/16/23 17:40 B. pertussis DNA (PCR) Not Detected (NotDetected) 01/16/23 17:40 B.parapertussis DNA PCR Not Detected (NotDetected) 01/16/23 17:40 C. pneumoniae DNA (PCR) Not Detected (NotDetected) 01/16/23 17:40 Coronavirus OC43 (PCR) Not Detected (NotDetected) 01/16/23 17:40 Coronavirus HKU1 (PCR) Not Detected (NotDetected) 01/16/23 17:40 Coronavirus 229E (PCR) Not Detected (NotDetected) 01/16/23 17:40 SARS-CoV-2 (PCR) Not Detected (NotDetected) 01/16/23 17:40 Coronavirus NL63 (PCR) Not Detected (NotDetected) 01/16/23 17:40 Human Metapneumovir PCR Not Detected (NotDetected) 01/16/23 17:40 Influenza Type A (PCR) Not Detected (NotDetected) 01/16/23 17:40 Influenza Type B (PCR) Not Detected (NotDetected) 01/16/23 17:40 M. pneumoniae (PCR) Not Detected (NotDetected) 01/16/23 17:40 Parainfluenza 1 (PCR) Not Detected (NotDetected) 01/16/23 17:40 Parainfluenza 2 (PCR) Not Detected (NotDetected) 01/16/23 17:40 Parainfluenza 3 (PCR) Not Detected (NotDetected) 01/16/23 17:40 Parainfluenza 4 (PCR) Not Detected (NotDetected) 01/16/23 17:40 RSV (PCR) Not Detected (NotDetected) 01/16/23 17:40 Entero/Rhino (PCR) Not Detected (NotDetected) 01/16/23 17:40 Impressions Chest X-Ray 01/16/23 17:24 XR chest 1V portable CLINICAL HISTORY: Fever. COMPARISON STUDY: Chest radiograph September 11, 2022. FINDINGS: Exam is mildly compromised given difficulty positioning. Lung volumes are normal. Lungs are clear. There is no pneumothorax or pleural effusion. Ca rdiac size is normal. Mediastinal contours are normal. There is no evidence for pulmonary edema. IMPRESSION: No acute cardiopulmonary findings. Exam mildly compromised given difficulty positioning. ACT 112: Negative or not required by law. Electronically signed by: Henok Rosenthal M.D. 01/16/2023 6:40 PM Abdomen/Pelvis CT 01/16/23 21:12 Exam(s): CT ABDOMEN + PELVIS Without Contrast EXAM: CT Abdomen and Pelvis Without Intravenous Contrast CLINICAL HISTORY: Reason for exam: fever; UTI. TECHNIQUE: Axial computed tomography images of the abdomen and pelvis without intravenous contrast. Automated exposure control was utilized for the study. A dose lowering technique was utilized adhering to the principles of ALARA. COMPARISON: Comparison made to prior CT scan of the abdomen and pelvis from September 11, 2022. FINDINGS: Lung bases: Unremarkable. No mass. No consolidation. ABDOMEN: Liver: Hepatic steatosis. Gallbladder and bile ducts: Unremarkable. No calcified stones. No ductal dilation. Pancreas: Unremarkable. No ductal dilation. Spleen: Unremarkable. No splenomegaly. Adrenals: Unremarkable. No mass. Kidneys and ureters: Unremarkable. No obstructing stones. No hydronephrosis. Stomach and bowel: Unremarkable. No obstruction. No mucosal thickening. PELVIS: Appendix: No findings to suggest acute appendicitis. Bladder: Unremarkable. No stones. Reproductive: Unremarkable as visualized. ABDOMEN and PELVIS: Intraperitoneal space: Unremarkable. No free air. No significant fluid collection. Bones/joints: No acute fracture. No dislocation. Soft tissues: Moderate bilateral fat-containing inguinal hernias. Vasculature: Unremarkable. No abdominal aortic aneurysm. Lymph nodes: Unremarkable. No enlarged lymph nodes. IMPRESSION: There is mild thickening of the urinary bladder wall with inflammation of the surrounding fat, which can be seen with cystitis. Recommend correlation with UA. Hepatic steatosis. Electronically signed by: Pauline Fitzpatrick MD 01/16/23 22:32 PM Code Status & VTE Plan Code Status Full code VTE Prophylaxis Plan VTE Prophylaxis will be ordered: Yes PG Care Time/CCT Total # of Minutes Spent Total Time Spent with Patient: Total time spent is greater than 50% in coordination of care (as documented) at patient's floor/unit and/or counseling patient: Coding Level of Care Code 26953 INT INP/OBS CARE MIN Diagnoses Optic atrophy H47.20 Seizure R56.9 Microcephalus Q02 Impulse control disorder F63.9 Enuresis R32 Urinary incontinence R32 Acute UTI (urinary tract infection) N39.0 Acquired intellectual disability F79
[2023-01-16] MEDS ORDERED: ACETAMINOPHEN 500 MG TAB PO PRN (23:56)
[2023-01-16] MEDS ORDERED: ONDANSETRON INJ 2 MG/ML 2 ML VIAL IV PRN (23:56)
[2023-01-16] MEDS ORDERED: MAGNESIUM HYDROXIDE SUSP 30 ML UDC PO PRN (23:56)
[2023-01-16] MEDS ORDERED: NSS + 20MEQ KCL 20 MEQ/1,000 ML BAG IV SCH (23:56)
[2023-01-16] MEDS ORDERED: LORazepam 1 MG TAB SL PRN (23:56)
[2023-01-16] MEDS ORDERED: MENTHOL-ZINC OXIDE 360 APPLN/120 GM TUBE EXT PRN (23:56)
[2023-01-17] MEDS ORDERED: GLYCERIN ADULT 12 SUPP/BOX SUPP PR PRN (00:21)
[2023-01-17] MEDS ORDERED: Patient's HEIGHT &/or WEIGHT Needed ONE (00:30)
[2023-01-17] MEDS: cefTRIAXone SODIUM 2,000 MG in DEXTROSE 5% 50 ML IV SCH (07:11)
[2023-01-17] MEDS: LORazepam 0.5 MG TAB PO SCH ×2 (08:35→15:55)
[2023-01-17] MEDS: PANTOprazole 40 MG TAB PO SCH (08:35)
[2023-01-17] MEDS: DOCUSATE SODIUM 100 MG CAP PO SCH ×3 (08:35→16:49)
[2023-01-17] MEDS: LACTULOSE SYRUP 20 GM/30 ML UDC PO SCH ×3 (08:36→21:53)
[2023-01-17] MEDS ORDERED: NON-FORMULARY MEDICATION (Fluoride (Sodium) [Denta 5000 Plus] 1.1 % cream) DT SCH (09:00)
[2023-01-17] MEDS: busPIRone 15 MG TAB PO SCH ×2 (10:18→15:55)
[2023-01-17] MEDS: MICONAZOLE NITRATE POWDER 85 GM TOP SCH ×2 (10:18→21:56)
[2023-01-17] MEDS: carBAMazepine 200 MG TABLET PO SCH ×2 (10:19→21:54)
[2023-01-17] MEDS: lamoTRIgine 100 MG TAB PO SCH ×2 (10:19→16:43)
[2023-01-17] MEDS: levETIRAcetam 250 MG TAB PO SCH ×2 (10:20→16:43)
[2023-01-17] MEDS: SODIUM CHLORIDE 1 GM TABLET PO SCH ×2 (10:20→16:43)
[2023-01-17] MEDS ORDERED: PSYLLIUM or GUAR GUM FIBER POWDER PACKET PO SCH (15:00)
--- NOTE | 2023-01-17 17:16 | Hospitalist Progress Note ---
Date of Service January 17, 2023 Assessment & Plan (1) Acute UTI (urinary tract infection): Plan Urinary tract infection w sepsis present on admission -ceftriaxone, await final ID&S on culture -stable -anticipate home on PO abx once sensitivities result Microcephalus/impulse control disorder/anxiety with depression/acquired intellectual disability/epilepsy- Continue routine medications: Buspirone, carbamazepine, fluoxetine, lamotrigine, levetiracetam, lorazepam GERD- Continue pantoprazole Continue all other medications as noted Admission and Anticipated Discharge Date Admission Date: January 16, 2023 Subjective no HPI or ROS obtainable from pt updated caregiver and answered all questions to the best of my ability she notes he's doing better with being in the hospital environment than they were expecting Review of Systems Review of Systems: Unobtainable due to cognitive status Physical Exam Physical Exam: gen resting in bed nad heent nc at mmm breathing unlabored no accessory muscles good effort skin no rashes no pallor or icterus Results & Data Results & Data Vital Signs (Past 12 Hours) Vital Signs Temp Pulse Pulse Resp BP BP Pulse Ox 01/17/23 16:52 01/17/23 15:54 100 H 18 112/68 95 01/17/23 15:00 98 H 01/17/23 14:30 101 H 01/17/23 14:16 113/81 95 01/17/23 14:16 100 H 12 01/17/23 14:00 96 H 24 01/17/23 13:30 102 H 22 01/17/23 13:00 102 H 22 01/17/23 12:30 103 H 21 01/17/23 12:00 105 H 23 01/17/23 11:30 108 H 26 H 01/17/23 11:00 110 H 23 01/17/23 10:30 107 H 14 01/17/23 10:00 106 H 18 01/17/23 09:30 107 H 20 01/17/23 09:00 112 H 24 01/17/23 08:30 108 H 25 H 01/17/23 08:00 113 H 20 01/17/23 07:30 110 H 26 H 01/17/23 07:00 109 H 26 H 01/17/23 06:33 125/80 01/17/23 06:33 109 H 19 94 01/17/23 06:30 111 H 22 01/17/23 06:00 110 H 27 H 01/17/23 05:30 109 H 26 H 01/17/23 06:57 109 H 01/17/23 06:34 99.5 F 107 H 20 125/80 98 O2 Del Method 01/17/23 16:52 Room Air 01/17/23 15:54 Room Air 01/17/23 15:00 01/17/23 14:30 01/17/23 14:16 Room Air 01/17/23 14:16 01/17/23 14:00 01/17/23 13:30 01/17/23 13:00 01/17/23 12:30 01/17/23 12:00 01/17/23 11:30 01/17/23 11:00 01/17/23 10:30 01/17/23 10:00 01/17/23 09:30 01/17/23 09:00 01/17/23 08:30 01/17/23 08:00 01/17/23 07:30 01/17/23 07:00 01/17/23 06:33 01/17/23 06:33 01/17/23 06:30 01/17/23 06:00 01/17/23 05:30 01/17/23 06:57 01/17/23 06:34 Room Air PG Care Time/CCT Total # of Minutes Spent Total Time Spent with Patient: Total time spent is greater than 50% in coordination of care (as documented) at patient's floor/unit and/or counseling patient: Coding Level of Care Code 17616 SUB INP/OBS CARE 3/50MIN Diagnoses Acute UTI (urinary tract infection) N39.0
[2023-01-17] MEDS ORDERED: busPIRone 15 MG TAB PO SCH (19:00)
[2023-01-17] MEDS ORDERED: ATORVASTATIN 10 MG TAB PO SCH (21:00)
[2023-01-17] MEDS ORDERED: FLUoxetine HCL 20 MG CAP PO SCH (21:00)
[2023-01-17] MEDS ORDERED: FAMOTIDINE 40 MG TABLET PO SCH (21:00)
[2023-01-18] MEDS: cefTRIAXone SODIUM 2,000 MG in DEXTROSE 5% 50 ML IV SCH (05:57)
[2023-01-18 06:51] LABS: Basophils # (auto) 0.01 K/uL (0-0.2); Basophils % (auto) 0.2 %; Eosinophils # (auto) 0.03 K/uL (0-0.50); Eosinophils % (auto) 0.6 %; Hematocrit (blood only) 37.2 % (42.0-52.0); Hemoglobin 12.5 g/dl (14.0-18.0); Immature Granulocytes # (auto) 0.04 K/uL (0.01-0.20); Immature Granulocytes % (auto) 0.8 %; Lymphocytes # (auto) 0.79 K/uL (1.2-3.4); Lymphocytes % (auto) 15.8 %; Mean Corpuscular Hgb Conc 33.6 g/dL (32.0-36.0); Mean Corpuscular Volume 89.2 fL (80.0-100.0); Mean Platelet Volume 8.5 fL (9.4-12.4); Monocytes # (auto) 0.76 K/uL (0.11-0.59); Monocytes % (auto) 15.2 %; Neutrophils # (auto) 3.37 K/uL (1.40-6.50); Neutrophils % (auto) 67.4 %; Platelet Count 144 K/uL (130-400); RDW Coefficient of Variation 13.8 % (11.5-14.5); RDW Standard Deviation 44.8 fL (36.4-46.3); Red Blood Count 4.17 M/uL (4.70-6.10)
[2023-01-18 07:11] LABS: BUN Creatinine Ratio 17.6 (10-20); Calcium 8.4 mg/dl (8.6-10.3); Creatinine Clr Calc Pharmacy 139.9 ml/min; Est GFR (African American) 129.1 ml/min; Est GFR (Non-African American) 111.4 ml/min; Potassium 3.8 mmol/L (3.5-5.1)
[2023-01-18] MEDS: SODIUM CHLORIDE 1 GM TABLET PO SCH (07:37)
[2023-01-18] MEDS: DOCUSATE SODIUM 100 MG CAP PO SCH (07:37)
[2023-01-18] MEDS: lamoTRIgine 100 MG TAB PO SCH (07:37)
[2023-01-18] MEDS: busPIRone 15 MG TAB PO SCH (07:37)
[2023-01-18] MEDS: levETIRAcetam 250 MG TAB PO SCH (07:37)
[2023-01-18] MEDS: PANTOprazole 40 MG TAB PO SCH (07:37)
[2023-01-18] MEDS: MICONAZOLE NITRATE POWDER 85 GM TOP SCH (07:38)
[2023-01-18] MEDS: LACTULOSE SYRUP 20 GM/30 ML UDC PO SCH (07:38)
[2023-01-18] MEDS: LORazepam 0.5 MG TAB PO SCH (07:41)
[2023-01-18] MEDS: carBAMazepine 200 MG TABLET PO SCH (07:43)
[2023-01-18] MEDS ORDERED: CHOLECALCIFEROL 1,000 UNITS 25 MCG TAB PO SCH (09:00)
[2023-01-18] MEDS ORDERED: CYANOCOBALAMIN (B-12) 500 MCG TABLET PO SCH (09:00)
[2023-01-18] MEDS ORDERED: CEFDINIR 300 MG CAP PO SCH (09:00)
--- NOTE | 2023-01-18 11:32 | Discharge Summary ---
Date of Service January 18, 2023 Admission HPI Per Admitting Provider The patient is a 52-year-old male with past medical history including microcephalus, impulse control disorder, hearing loss, GERD, enuresis, cortical blindness, anxiety disorder, acquired intellectual disability, epilepsy, gait disturbance, recurrent urinary tract infection, gait instability and SIRS. 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 They note that he also had multiple episodes of urinary incontinence overnight, and had multiple episodes of tremors intermittently throughout the day today. The patient himself is unable to contribute to HPI or review of systems Admission Exam Per Admitting Provider The patient is awake, unresponsive, has intermittent episodes of agitation, otherwise lying in bed and in no acute distress. HEENT--PERRL, EOMI, mucous membranes and oropharynx dry. Neck--supple. No JVD. No bruits. Thyroid normal, trachea midline, no adenopathy. Heart--normal S1 and S2. No murmurs, rubs or gallops. Lungs--clear bilaterally, no respiratory distress, no accessory muscle use. Abdomen--normal bowel sounds and soft. Nontender. Nondistended Extremities--No edema. Dermatologic--normal skin turgor, normal color, no abnormal lymph nodes, no r valerie. Neurologic--limited exam Rheumatologic--limited exam Psychiatric--unresponsive. Principal Diagnosis UTI Discharge Exam Constitutional WD/WN, vitals as above no acute distress Respiratory normal respiratory effort, lungs clear to auscultation Cardiovascular RRR, no murmur, no edema Gastrointestinal (Abdomen) normal bowel sounds, soft, nontender, no hepatosplenomegaly Skin no rashes, warm and dry Discharge Data Allergies Allergy/AdvReac Type Severity Reaction Status Date / Time NSAIDS (Non-Steroidal AdvReac Intermediate Gastrointestinal Verified 01/16/23 19:33 Anti-Inflamma Upset Consultations 01/16/23 22:41 ED Decision to Admit Stat Ordered Studies 01/16/23 21:12 CT Abd and Pelvis [CT abd pelvis wo con] Stat Hospital Course (1) GERD without esophagitis: (2) Acute UTI (urinary tract infection): (3) SIRS (systemic inflammatory response syndrome): (4) Epilepsy: (5) Acquired intellectual disability: (6) Anxiety disorder: (7) Enuresis: (8) Impulse control disorder: (9) Seizure: Plan Acute UTI (urinary tract infection): -Urinary tract infection w sepsis present on admission -treated with ceftriaxone empirically during hospitalization, final urine culture shows sensitivity to ceftriaxone -discharged on course of Cefdinirx7 days -stable condition at discharge Microcephalus/impulse control disorder/anxiety with depression/acquired intellectual disability/epilepsy- - Home meds continued during hosptial stay: Buspirone, carbamazepine, fluoxetine, lamotrigine, levetiracetam, lorazepam GERD- - Continue pantoprazole Low Vitamin D Level: - Vitamin D14.2 - Started on Vitamin D supplement, recommend continued supplementation following discharge Total Time Total Time Spent Total Time Spent (In Minutes): <30 Discharge Plan Discharge Items Patient Disposition: Personal Usp Reason For Visit: UTI, ALTERED MENTATION Discharge Diagnosis: UTI Activity: Resume your previous activity Non-emergency contact: Primary Care Provider Call non-emergency contact if: you have any medication questions and your symptoms worsen Follow-up/Referrals: Carlton Haynes DO [Primary Care Provider] - 01/23/23 9:20 am Diet: Regular Addtl Attending Provider Instructions: You were admitted due to a urinary tract infection. During your hospitalization, you were started on antibiotics to treat the infection. Upon discharge, please continue the prescribed antibiotic, Cefdinir - please take this medication twice daily for 7 days starting tomorrow 01/19. During your hospital stay, lab work showed that your vitamin D level is low. Please take 1 1000IU tablet daily. Your vitamin B12 was also borderline low, I recommend that you take a B12 supplement once daily as well. Please follow up with your primary care provider so they may continue management. Pending Studies at Discharge: No Stand-Alone Forms: My Schedule C Systems, Smoking Cessation Skilled Items Patient informed of condition?: Yes DNR: No Discharge Level of Care: Other Communicable Disease: No Discharge Prognosis: Stable Lines: None Urinary Catheter: No Medications and DC Order Prescriptions: New cefdinir 300 mg Capsule 300 mg PO BID 7 Days Qty: 14 0RF cholecalciferol (vitamin D3) 25 mcg (1,000 unit) tablet 25 mcg PO DAILY 90 Days Qty: 90 0RF cyanocobalamin (vitamin B-12) 500 mcg Tablet 1,000 mcg PO QAM 30 Days Qty: 60 0RF Continued (DME) Manual Wheelchair Device See Rx Instructions .Route Qty: 1 0RF Rx Instructions: As directed (DME) Highback manual wheelchair See Rx Instructions .Route .MEDSUPPLY Qty: 1 0RF Rx Instructions: As directed (DME) Batsheva Sling See Rx Instructions .Route .MEDSUPPLY Qty: 1 0RF Rx Instructions: As directed (DME) Batsheva lift See Rx Instructions .Route .MEDSUPPLY Qty: 1 0RF Rx Instructions: As directed atorvastatin 10 mg tablet 10 mg PO QPM Qty: 90 1RF carbamazepine 200 mg tablet 400 mg PO BIDM Qty: 120 5RF Rx Instructions: ADMINISTER AT 0800 AND 1900 HOURS WITH FOOD famotidine 40 mg tablet 40 mg PO HS Qty: 90 1RF lactulose 10 gram/15 mL solution 30 ml PO TID Qty: 2700 11RF Reguloid (psyllium husk) 3 gram/5.4 gram powder 1 tbsp PO DAILY@1500 Qty: 284 2RF Rx Instructions: Mix 1 tablespoon in 8 ounces of applesauce and take by mouth daily for constipation. Remedy Phytoplex Antifungal 2 % powder 1 applic topical BID Qty: 85 2RF Rx Instructions: Please apply at 7AM and 7PM Neosporin Plus Pain Relief 3.5-10,000-10 mg-unit-mg/gram cream 1 applic topical TID PRN (Reason: disinfection) Qty: 28.3 5RF glycerin (adult) [Fleet Glycerin (Adult)] Suppository 1 supp AK DIRECTED PRN (Reason: Constipation) Qty: 25 0RF Rx Instructions: If no BM in 48hrs, insert 1 supp AK by the 49th hr of no BM. Retain supp for 15min. repeat in 12hrs if no BM. Calmoseptine 0.44-20.6 % ointment 1 applic topical QID PRN (Reason: skin irritation) Qty: 113 5RF Rx Instructions: Apply a thin layer in the inguinal crease bilaterally to help prevent skin breakdown lorazepam 0.5 mg tablet 0.5 mg PO BID Patient Comments: take at 8 AM and 3 PM Rx Instructions: TAKES 0800 & 1500 buspirone 15 mg tablet See Rx Instructions .ROUTE .COMPLEX Rx Instructions: TAKES 15 MG AT 0800 & 1500, THEN 30 MG AT 1900. fluoride (sodium) [Denta 5000 Plus] 1.1 % cream 1 applic dental BID lorazepam 2 mg tablet 2 mg PO DIRECTED PRN (Reason: premedication for Dentist) fluoxetine 40 mg capsule 80 mg PO QPM acetaminophen [Tylenol Extra Strength] 500 mg Tablet 500 mg PO Q6H PRN (Reason: Fever Or Pain) lorazepam [Ativan] 1 mg Tablet 1 mg sublingual DIRECTED PRN (Reason: before blood work) Rx Instructions: 60 min before blood draw prn Triple Antibiotic 3.5mg-400 unit- 5,000 unit/gram Ointment 1 applic TOPICAL TID PRN (Reason: NEEDED FOR SCRATCHES/WOUNDS) sodium chloride 1,000 mg Tablet,Soluble 1,000 mg PO BIDM lamotrigine 200 mg tablet 400 mg PO BIDM Rx Instructions: TAKE 2 TABLETS (400MG) BY MOUTH TWICE DAILY WITH FOOD FOR SEIZURE DISORDER magnesium hydroxide [Milk of Magnesia] 400 mg/5 mL suspension 15 ml PO DAILY PRN (Reason: stomach upset) pantoprazole 40 mg tablet,delayed release (DR/EC) 40 mg PO QAM Rx Instructions: TAKE 1 TABLET BY MOUTH ONCE DAILY (DX: GERD) docusate sodium 100 mg capsule 100 mg PO TIDM Rx Instructions: TAKE 1 CAPSULE BY MOUTH THREE TIMES DAILY WITH FOOD (DX: CONSTIPATION) levetiracetam 750 mg tablet 750 mg PO BIDM Rx Instructions: TAKE ONE TABLET BY MOUTH TWICE DAILY WITH FOOD FOR SEIZURE DISORDER Discharge Orders: Discharge Order (Routine); Ordered 01/18/23 Ordered By: Levy Le Admission Data Admit Date/Time: 01/16/23 23:12 Attending Provider: Damien Hood Admit Provider: Javed Bradley Primary Care Provider: Carlton Haynes Other Providers: Javed Bradley Other Interventions: Discharge Summary Assessment (RN) Last Done: 01/18/23 10:04 Supervising Physician Co-Signing Physician Notes I personally examined the patient and verified all lindquist points of history and exam, discussed case, and agree with decision making with Dr Le No meaningful HPI review of systems. Caregiver would like to get him home soon as possible. Discussed culture results, p.o. antibiotics. Vitals noted, in general he appears to be in no distress more alert than yesterday. Breathing unlabored no accessory muscle use. Exam otherwise as above UTI with sepsis present on admissionstable for transition to cefdinirtreat for about 7 days total antibiotics. Safe/stable for home. Resident Activity Tracking Resident Involvement: Resident Care Provided Care Provided: Adult Hospital Medicine
--- NOTE | 2023-01-18 17:59 | Billing Data ---
Date of Service January 18, 2023 Coding Level of Care Code 93855 IN/OBS DISCH 30 MIN/LESS
--- NOTE | 2023-01-18 20:02 | Electrocardiogram Report ---
Test Reason : Blood Pressure : / mmHG Vent. Rate : 110 BPM Atrial Rate : 110 BPM P-R Int : 116 ms QRS Dur : 078 ms QT Int : 336 ms P-R-T Axes : 054 078 079 degrees QTc Int : 454 ms Sinus tachycardia Nonspecific ST and T wave abnormality Abnormal ECG When compared with ECG of 11-SEP-2022 15:40, Nonspecific T wave abnormality, worse in Anterior leads Confirmed by Galo Leal ([id number]) on 01/18/2023 8:01:57 PM Referred By: REFERRED SELF Confirmed By:Galo Leal
== END 2023-01-18 10:58 | disposition home or self-care (01) ==
LOC: EDINP 16:56 → ED 16:56 → SUATTDRO 23:12 → 2S 01-17 16:06

== ENCOUNTER 2024-09-15 08:28 | Inpatient (IN) ==
--- NOTE | 2024-09-15 08:41 | Emergency Department Note ---
Impression & Plan Acute leg pain, Osteoarthritis, Unable to bear weight on lower extremity ED Provider Note NAME: VETO KERR AGE: 54 SEX: M : 1970 ARRIVES VIA: Ambulance INFORMANT: Patient, EMS ED PROVIDER(S): Gavin Mejía DO CHIEF COMPLAINT: Leg pain HPI: The patient is a 54-year-old male who presented to the emergency department for an evaluation of leg pain. It is not completely clear what exactly happened. The patient has a history of intellectual disability. He could not usually communicate very well. The patient is complaining of pain all over. The patient was seen in our facility recently for knee pain. There was no reported trauma. There is no reported head injury or neck injury. ROS: See above HPI for pertinent positives & negatives. A total of 10 systems reviewed and were otherwise negative. PAST MEDICAL HISTORY: See Below PAST SURGICAL HISTORY: See Below FAMILY HISTORY: See Below SOCIAL HISTORY: See Below HOME MEDICATIONS: See Below ALLERGIES: See Below VITALS: See Below PHYSICAL EXAMINATION: GENERAL: The patient is awake and alert. He is very anxious and appears uncomfortable. EYES: The conjunctivae are clear. The pupils are round and reactive. EARS, NOSE, MOUTH AND THROAT: The nose is without any evidence of any deformity. e. NECK: The neck is nontender and supple. RESPIRATORY: Normal respiratory effort is noted there is no evidence of wheezing rhonchi or rales CARDIOVASCULAR: Regular rate and rhythm noted there no murmurs rubs or gallops normal S1 normal S2. GASTROINTESTINAL: The abdomen is distended. There is no specific guarding or rigidity. MUSCULOSKELETAL/EXTREMITIES: There is some shortening of the left leg. There is pain with range of motion testing of the left hip. There is no specific tenderness to palpation over the left knee. Range of motion does appear intact. There is no definite effusion or warmth compared to the other side. SKIN: Skin is warm and dry. Trace pedal edema was noted bilaterally. NEUROLOGIC: Patient is awake alert and does follow commands. MEDICAL DECISION MAKING: The patient is a 54-year-old male who suffers from intellectual disability who presented to the emergency department for an evaluation of leg pain. The patient did have reproducible left hip pain. He also has pain over his left knee. The patient was seen here previously with similar complaints. He was able to be discharged to home but at this time he is unable to bear weight appropriately on his left leg. I discussed the patient's laboratory and radiographic studies with him and his caregiver. I discussed his condition with the on-call [facility] hospitalist. He may require further inpatient management and evaluation to determine if there is an underlying bony abnormality. CT as well as plain x-ray did not reveal any definite fracture. Triage Nursing notes reviewed. Prior medical records reviewed Vital Signs: reviewed and remarkable for no significant abnormalities Differential diagnosis: Fracture, subluxation, dislocation, contusion, ligamentous injury, neurovascular, compartment syndrome, rhabdomyolysis, as well as other pathologies. ER treatment provided: See below Diagnostics interpreted by me: ECG: EKG was obtained in the emergency department. My interpretation is sinus rhythm at 95 bpm. PVCs were noted. Nonspecific ST segment abnormalities are noted. This was compared to a tracing from March 19, 2024. No changes were noted. Cardiac Monitoring: An order was placed for continuous cardiac monitoring. The monitor shows a rate of 81 bpm with sinus rhythm. Laboratory studies: As stated above and show below. Imaging studies: See below. Radiographic imaging was reviewed by myself Consultation(s): I discussed this case with Dr. Velez who is on-call for the [facility] hospitalist group. He is agreed to evaluate the patient in the emergency department. 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) Seizure (Chronic) Acne (Chronic 02/28/13) Migraines (Chronic 02/28/13) Microcephalus (Chronic) Impulse control disorder (Chronic) Hyponatremia (Chronic) Hyperlipidemia (Chronic 02/28/13) High triglycerides (Chronic) Hearing loss (Chronic 02/28/13) GERD without esophagitis (Chronic) Enuresis (Chronic) Eczema (Chronic) Depression (Chronic) 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) Chronic constipation (Chronic) Anxiety disorder (Chronic 02/28/13) Acquired intellectual disability (Chronic) Epilepsy Obesity Gait disturbance Urinary incontinence Sebaceous cyst Acute UTI (urinary tract infection) (Acute) Gait instability (Acute) Vitamin D deficiency Medical History SIRS (systemic inflammatory response syndrome) Fever Cyst ON SCALP Diverticulitis Hiatal hernia Gastritis Hyperlipidemia Strabismus Microcephaly Hearing deficit GERD (gastroesophageal reflux disease) Acquired intellectual disability Nonverbal History provided by [facility] History of seizure Date of last seizure unknown, information obtained by nurse from [facility] records Depression Anxiety Impulse control disorder Cortical blindness Surgical History History of esophagogastroduodenoscopy (EGD) History of colonoscopy No history of previous surgery Family History Other Family history of diabetes mellitus Heart disease Unknown family medical history Social History Smoking Status: Unknown if ever smoked Second Hand Exposure: No; Do You Dip or Chew Tobacco: No; Hx Alcohol Use: No Hx Substance Use: No Preferred Language: Barbadian Communication Ability: Impaired Communication Tools: Physical Gestures Visual Impairment: Blindness Hearing Ability: Normal Bank Messenger Required: No Beliefs That Will Affect Care: None marital status: Single Current Living Situation: Personal Care Facility Current Living Situation Comment: [facility] current occupational status: unemployed and disabled Feels Safe at Home: Yes Childhood Exposure to Second-Hand Smoke: No Diet: other Diet Comment: Chopped caffeine: No during the past year weight has: increased > 10 lbs Dental Care, Regularly: Yes Physical Activity Frequency: 1-2 Times per Week Seatbelt Use: always Sunscreen Use: Yes Assistive Devices: Wheelchair Allergies Allergies Allergy/AdvReac Type Severity Reaction Status Date / Time NSAIDS (Non-Steroidal AdvReac Intermediate Gastrointestinal Verified 07/15/24 15:03 Anti-Inflamma Upset Home Meds Home Medications Medication Instructions Recorded Confirmed fluoxetine 40 mg capsule 20 mg PO QPM 01/01/20 09/15/24 lorazepam 0.5 mg tablet 0.5 mg PO DAILY 10/04/20 09/15/24 buspirone 15 mg tablet 15 mg PO TID 11/02/21 09/15/24 fluoride (sodium) 1.1 % dental 1 applic dental BID 11/02/21 09/15/24 cream (Denta 5000 Plus) acetaminophen 500 mg tablet 1,000 mg PO Q6H PRN Fever Or Pain 07/04/22 09/15/24 (Tylenol Extra Strength) latanoprost 0.005 % eye drops 1 drp OPB QPM 03/19/24 09/15/24 loperamide 2 mg capsule 2 - 4 mg PO Q6H PRN Diarrhea 03/19/24 09/15/24 lorazepam 0.5 mg tablet (Ativan) 0.5 mg PO DAILY DENTAL PROCEDURES 07/15/24 09/15/24 Oral Swabstick 1 ea dental BID 09/15/24 lactulose 10 gram/15 mL oral 30 ml PO TID 09/15/24 09/15/24 solution magnesium hydroxide 400 mg/5 mL 30 - 60 ml PO HS PRN Constipation 09/15/24 09/15/24 oral suspension (Milk of Magnesia) pantoprazole 40 mg tablet,delayed 40 mg PO QAM 09/15/24 09/15/24 release paroxetine HCl 30 mg tablet 30 mg PO PM 09/15/24 09/15/24 psyllium husk (with sugar) 3 1 ea PO DAILY 09/15/24 09/15/24 gram/11 gram oral powder (Fiber (psyllium husk-sugar)) Previous Rx's Medication Instructions Recorded Highback manual wheelchair #1 ea 08/31/21 Wheelchair (Manual) (Manual #1 ea 08/31/21 Wheelchair) Batsheva Sling #1 ea 09/14/22 Batsheva lift #1 ea 09/20/22 glycerin (adult) (Fleet Glycerin 1 supp NV DIRECTED PRN 12/12/22 (Adult) rectal suppository) Constipation #25 ea syringe with needle, safety 1 mL #1 ea 08/09/23 25 gauge x 1" (Easy Touch FlipLock Syringe) miconazole nitrate 2 % topical 1 applic topical BID #85 grams 08/29/23 powder (Remedy Phytoplex Antifungal) Saccharomyces boulardii 250 mg 250 mg PO BID #60 caps 11/22/23 capsule (Florastor) lamotrigine 200 mg tablet 400 mg (2 x 200 mg) PO BID #120 11/22/23 tabs carbamazepine 200 mg tablet 200 mg PO BID #60 tabs 05/05/24 docusate sodium 100 mg capsule 100 mg PO TIDM constipation #90 05/27/24 caps famotidine 40 mg tablet 40 mg PO HS #90 tabs 05/27/24 levetiracetam 1,000 mg tablet 1,000 mg PO BID #60 tabs 06/23/24 atorvastatin 10 mg tablet 10 mg PO QPM #90 tabs 06/25/24 cyanocobalamin (vitamin B-12) 2,000 mcg PO DAILY #30 tabs 06/25/24 2,000 mcg tablet Neosporin Plus Pain Relief 3.5 1 applic topical TID PRN 07/03/24 mg-10,000 unit-10 mg/gram topical disinfection #28.3 grams cream (ivwheldt-hnomnyhni-fuesytngg) cholecalciferol (vitamin D3) 25 3,000 unit PO DAILY #90 tabs 08/06/24 mcg (1,000 unit) tablet Results & Data (ED) Vital Signs Vital Signs - 24 hr 09/15/24 08:42 09/15/24 08:43 09/15/24 08:43 Temperature 36.5 C Temperature Source Oral Pulse Rate 107 H Pulse Rate from SpO2 Sensor Respiratory Rate 20 Respiratory Effort / Characteristics Non-Labored Spontaneous Respiratory Depth Normal Respiratory Pattern Regular Blood Pressure 136/89 Blood Pressure Mean 104 Blood Pressure Position Lying Pulse Oximetry 97 98 97 Oxygen Delivery Method Room Air Room Air Room Air Sepsis Recent Fever Within 48 Hours No Sepsis New/Unexplained Change in Mental Status N/A Sepsis Action Taken by Nursing No Action Required 09/15/24 09:04 09/15/24 09:08 09/15/24 09:09 Temperature Temperature Source Pulse Rate 107 H 94 H Pulse Rate from SpO2 Sensor 93 H Respiratory Rate 15 Respiratory Effort / Characteristics Respiratory Depth Respiratory Pattern Blood Pressure 154/103 H Blood Pressure Mean 120 Blood Pressure Position Pulse Oximetry 90 Oxygen Delivery Method Sepsis Recent Fever Within 48 Hours Sepsis New/Unexplained Change in Mental Status Sepsis Action Taken by Nursing 09/15/24 09:42 09/15/24 09:57 09/15/24 10:00 Temperature Temperature Source Pulse Rate 91 H 88 Pulse Rate from SpO2 Sensor Respiratory Rate 17 19 Respiratory Effort / Characteristics Respiratory Depth Respiratory Pattern Blood Pressure 170/116 H Blood Pressure Mean 132 Blood Pressure Position Pulse Oximetry Oxygen Delivery Method Sepsis Recent Fever Within 48 Hours Sepsis New/Unexplained Change in Mental Status Sepsis Action Taken by Nursing 09/15/24 10:06 09/15/24 10:27 09/15/24 10:30 Temperature Temperature Source Pulse Rate 91 H 91 H Pulse Rate from SpO2 Sensor 89 88 Respiratory Rate 15 13 Respiratory Effort / Characteristics Respiratory Depth Respiratory Pattern Blood Pressure 141/91 H Blood Pressure Mean 99 Blood Pressure Position Pulse Oximetry Oxygen Delivery Method Sepsis Recent Fever Within 48 Hours Sepsis New/Unexplained Change in Mental Status Sepsis Action Taken by Nursing 09/15/24 10:33 Temperature Temperature Source Pulse Rate 89 Pulse Rate from SpO2 Sensor 90 Respiratory Rate 15 Respiratory Effort / Characteristics Respiratory Depth Respiratory Pattern Blood Pressure Blood Pressure Mean Blood Pressure Position Pulse Oximetry 93 Oxygen Delivery Method Sepsis Recent Fever Within 48 Hours Sepsis New/Unexplained Change in Mental Status Sepsis Action Taken by Correction Medications Current Medication List: was personally reviewed by me Laboratory Data Attestation: I reviewed the patient's lab results. 09/15/24 08:35 09/15/24 08:35 Lab Results 09/15/24 Range/Units 08:35 WBC 5.05 (4.8-10.8) K/ul RBC 5.08 (4.70-6.10) M/uL Hgb 15.0 (14.0-18.0) g/dl Hct 44.5 (42.0-52.0) % MCV 87.6 (80.0-100.0) fL MCH 29.5 (25.0-34.0) pg MCHC 33.7 (32.0-36.0) g/dL RDW Std Deviation 40.9 (36.4-46.3) fL RDW Coeff of Kenzie 13.0 (11.5-14.5) % Plt Count 247 (130-400) K/uL MPV 8.8 L (9.4-12.4) fL Immature Gran % (Auto) 1.2 % Neut % (Auto) 63.2 % Lymph % (Auto) 27.9 % Bond % (Auto) 5.7 % Eos % (Auto) 1.6 % Baso % (Auto) 0.4 % Neut # (Auto) 3.19 (1.40-6.50) K/uL Lymph # (Auto) 1.41 (1.20-3.40) K/uL Bond # (Auto) 0.29 (0.11-0.59) K/uL Eos # (Auto) 0.08 (0.00-0.50) K/uL Baso # (Auto) 0.02 (0.00-0.20) K/uL Immature Gran # (Auto) 0.06 (0.01-0.20) K/uL PT 10.4 (9.0-12.0) Seconds INR 1.0 (0.9-1.1) APTT 33 H (21-31) Seconds PTT Ratio 1.2 Sodium 139 (136-145) mmol/L Potassium 3.8 (3.5-5.1) mmol/L Chloride 102 (98-107) mmol/L Carbon Dioxide 31 (21-32) mmol/L Anion Gap 6 (3-11) BUN 11 (6-23) mg/dl Creatinine 0.95 (0.6-1.4) mg/dl Est Cr Clr Drug Dosing 96.6 ml/min eGFR 96.31 BUN/Creatinine Ratio 11.6 (10-20) Glucose 124 H (70-99(Fasting)) mg/dl Uric Acid 4.9 (2.6-7.2) mg/dl Calcium 9.1 (8.6-10.3) mg/dl Total Bilirubin 0.3 (0.2-1.0) mg/dl AST 22 (13-39) U/L ALT 25 (7-52) U/L Alkaline Phosphatase 116 H (34-104) U/L Total Creatine Kinase 163 (30-223) U/L Troponin I High Sens < 2.3 (0-20) pg/ml C-Reactive Protein 1.77 H (0-0.5) mg/dl Total Protein 8.3 (6.0-8.3) gm/dl Albumin 4.4 (3.4-5.0) gm/dl Globulin 3.9 (2.5-4.0) gm/dl Albumin/Globulin Ratio 1.1 (0.9-2) Lipase 22 (11-82) U/L Procalcitonin < 0.02 (0-0.5) ng/ml Anaplasma Smear See Comment Babesia Smear See Comment Lyme Disease Screen Negative (Negative) Administered Medications Discontinued Medications Ioversol (Optiray 320 100ml) 94 ml IV ONCE ONE Stop: 09/15/24 09:26 Last Admin: 09/15/24 09:26 Dose: 94 ml Documented By: CACHORRO Morphine Sulfate (Morphine Sulfate 4 Mg/Ml 1 Ml Carp\\Vial) 4 mg IV NOW STA Stop: 09/15/24 08:35 Last Admin: 09/15/24 08:58 Dose: 4 mg Documented By: JOHN Ondansetron HCl (Ondansetron Inj 2 Mg/Ml 2 Ml Vial) 4 mg IV NOW STA Stop: 09/15/24 08:35 Last Admin: 09/15/24 08:58 Dose: 4 mg Documented By: JOHN Imaging Data Attestation: I personally reviewed and interpreted this imaging study as follows: My Impression: X-ray of the left hip and pelvis was obtained in the emergency department. My interpretation is no definite fracture or dislocation, final report below. X-ray of the right and left knees were obtained in the emergency department. My interpretation is no definite fracture, final reports below. Radiologist's Impression: Hip/Pelvis X-Ray 09/15/24 08:34 XR hip LT 2V w pelvis CLINICAL HISTORY: Left hip pain. COMPARISON: CT of the abdomen and pelvis January 01, 2024. Left hip radiographs 03/24/2024. FINDINGS: Sacroiliac joints and symphysis pubis are intact. There are no acute fractures within the pelvis or hips. Moderate left hip osteoarthritis is present with joint space narrowing and osteophytosis. There is mild right hip osteoarthritis. IMPRESSION: 1. No fractures within the pelvis or hips. 2. Moderate left hip osteoarthritis. ACT 112: Negative or not required by law. Electronically signed by: Henok Rosenthal M.D. 09/15/2024 9:15 AM Knee X-Ray 09/15/24 08:34 XR knee LT 1 or 2V routine HISTORY: 54 years-old Male pain acute left knee pain COMPARISON: 09/13/2024 TECHNIQUE: 2 views of the left knee FINDINGS: Unchanged appearance of the patella with inferior patellar 2 cm corticated ossification. Minimal tricompartmental osteoarthritis without acute fracture, dislocation, osseous erosion or large joint effusion. IMPRESSION: Minimal osteoarthritis without acute fracture or dislocation. ACT 112: Negative or not required by law. The above report was generated using voice recognition software. It may contain grammatical, syntax or spelling errors. Electronically signed by: Shahram Mcdonald M.D. 09/15/2024 9:10 AM Chest X-Ray 09/15/24 08:35 XR chest 1V portable HISTORY: 54 years-old Male Chest pain, nonspecific COMPARISON: 06/08/2024 TECHNIQUE: AP view of the chest FINDINGS: Cardiomediastinal and hilar silhouettes are within normal limits. No pneumothorax, pleural effusion, airspace consolidation or pulmonary edema. Bones appear grossly intact. IMPRESSION: No acute process. ACT 112: Negative or not required by law. The above report was generated using voice recognition software. It may contain grammatical, syntax or spelling errors. Electronically signed by: Shahram Mcdonald M.D. 09/15/2024 9:09 AM Abdomen/Pelvis CT 09/15/24 09:[address] WITH IV CONTRAST CT DOSE: 2204.69 mGy.cm HISTORY: Acute lower abdominal pain LOWER abd pain TECHNIQUE: Multiaxial CT images of the abdomen and pelvis were performed following the IV administration of 94 cc of Optiray, A dose lowering technique was utilized adhering to the principles of ALARA. COMPARISON STUDY: CT left hip same day, CT abdomen and pelvis 01/01/2024 FINDINGS: Punctate calcified granuloma of the left lower lobe. No pneumatosis or pneumoperitoneum. Unremarkable spleen, pancreas, gallbladder and adrenal glands. Hepatic steatosis. Patency of the hepatic and portal veins. Unremarkable kidneys without hydronephrosis. Small cyst of the interpolar right kidney. Probable small fat filled inguinal hernias. Mild atherosclerosis of the abdominal aorta without aneurysm. There is no bowel obstruction or bowel wall thickening. No ascites or mesenteric inflammation. Mild colonic fecal retention. Normal appendix. Minimal subcutaneous edema lateral to the left hip. Spondylitic spurring of the spine. No acute fracture identified. Moderate osteoarthritis of the hips. IMPRESSION: 1. No acute intra-abdominal or intrapelvic abnormality identified. 2. No acute fracture. ACT 112: Negative or not required by law. The above report was generated using voice recognition software. It may contain grammatical, syntax or spelling errors. Electronically signed by: Shahram Mcdonald M.D. 09/15/2024 10:[address] 09/15/24 09:[address] CLINICAL HISTORY: will not bear weight COMPARISON STUDY: Left hip radiographs performed earlier today. Pelvis CT April 15, 2019. TECHNIQUE: Axial images of the left hip were obtained. Sagittal and coronal reformats were viewed. Please note that the abdomen and pelvis CT will be reported separately. A dose lowering technique was utilized adhering to the principles of ALARA. FINDINGS: There are no fractures within the left hip. No osseous lesions are present. There is no evidence for avascular necrosis of the left femoral head. There is moderate left hip joint space narrowing with osteophytosis. No abnormality within the adjacent soft tissues is identified by CT. There are no fractures within visualized portions of the left hemipelvis. IMPRESSION: 1. No fractures within the left hip. 2. Moderate left hip osteoarthritis. ACT 112: Negative or not required by law. Electronically signed by: Henok Rosenthal M.D. 09/15/2024 10:18 AM Knee X-Ray 09/15/24 09:25 XR knee RT 1 or 2V routine CLINICAL HISTORY: Right knee pain. COMPARISON: Right knee radiographs March 24, 2024. FINDINGS: Alignment of the right knee is anatomic. No acute fracture. There is no joint effusion. A bony excrescence arising from the inferior patella at the origin of the patellar tendon is unchanged. Spurring of the tibial tubercle is unchanged. There are no osseous lesions. There are mild degenerative changes within the right knee. IMPRESSION: 1. No fractures within the right knee. No right knee joint effusion. 2. No change since radiographs of March 24, 2024. ACT 112: Negative or not required by law. Electronically signed by: Henok Rosenthal M.D. 09/15/2024 10:24 AM Discharge Plan Visit Data Chief Complaint: Weakness ED Provider: Gavin Mejía Discharge Problem: Acute leg pain, Osteoarthritis, Unable to bear weight on lower extremity Patient Disposition: Being Evaluated by Hospitalist
[2024-09-15] MEDS: MoRPHine SULFATE 4 MG/ML 1 ML CARP\\VIAL IV STA (08:58)
[2024-09-15] MEDS: ONDANSETRON INJ 2 MG/ML 2 ML VIAL IV STA (08:58)
[2024-09-15 09:02] LABS: Basophils # (auto) 0.02 K/uL (0.00-0.20); Basophils % (auto) 0.4 %; Eosinophils # (auto) 0.08 K/uL (0.00-0.50); Eosinophils % (auto) 1.6 %; Hematocrit (blood only) 44.5 % (42.0-52.0); Immature Granulocytes # (auto) 0.06 K/uL (0.01-0.20); Immature Granulocytes % (auto) 1.2 %; Lymphocytes # (auto) 1.41 K/uL (1.20-3.40); Lymphocytes % (auto) 27.9 %; Mean Corpuscular Hemoglobin 29.5 pg (25.0-34.0); Mean Corpuscular Hgb Conc 33.7 g/dL (32.0-36.0); Mean Corpuscular Volume 87.6 fL (80.0-100.0); Mean Platelet Volume 8.8 fL (9.4-12.4); Monocytes # (auto) 0.29 K/uL (0.11-0.59); Monocytes % (auto) 5.7 %; Neutrophils # (auto) 3.19 K/uL (1.40-6.50); Neutrophils % (auto) 63.2 %; Platelet Count 247 K/uL (130-400); RDW Standard Deviation 40.9 fL (36.4-46.3); Red Blood Count 5.08 M/uL (4.70-6.10); White Blood Count 5.05 K/ul (4.8-10.8)
[2024-09-15 09:11] LABS: Alanine Aminotransferase 25 U/L (7-52); Albumin Globulin Ratio 1.1 (0.9-2); Albumin Level 4.4 gm/dl (3.4-5.0); Alkaline Phosphatase 116 U/L (34-104); Anion Gap 6 (3-11); Aspartate Aminotransferase 22 U/L (13-39); BUN Creatinine Ratio 11.6 (10-20); Bilirubin,Total 0.3 mg/dl (0.2-1.0); Blood Urea Nitrogen 11 mg/dl (6-23); C Reactive Protein 1.77 mg/dl (0-0.5); Calcium 9.1 mg/dl (8.6-10.3); Carbon Dioxide 31 mmol/L (21-32); Chloride 102 mmol/L (98-107); Creatinine Clr Calc Pharmacy 96.6 ml/min; Globulin 3.9 gm/dl (2.5-4.0); Glucose 124 mg/dl (70-99(Fasting)); Lipase 22 U/L (11-82); Potassium 3.8 mmol/L (3.5-5.1); Sodium 139 mmol/L (136-145); Total Protein 8.3 gm/dl (6.0-8.3); Uric Acid 4.9 mg/dl (2.6-7.2)
--- NOTE | 2024-09-15 09:11 | XRay Report ---
XR chest 1V portable HISTORY: 54 years-old Male Chest pain, nonspecific COMPARISON: 06/08/2024 TECHNIQUE: AP view of the chest FINDINGS: Cardiomediastinal and hilar silhouettes are within normal limits. No pneumothorax, pleural effusion, airspace consolidation or pulmonary edema. Bones appear grossly intact. IMPRESSION: No acute process. ACT 112: Negative or not required by law. The above report was generated using voice recognition software. It may contain grammatical, syntax o r spelling errors. Electronically signed by: Shahram Mcdonald M.D. 09/15/2024 9:09 AM
--- NOTE | 2024-09-15 09:11 | XRay Report ---
XR knee LT 1 or 2V routine HISTORY: 54 years-old Male pain acute left knee pain COMPARISON: 09/13/2024 TECHNIQUE: 2 views of the left knee FINDINGS: Unchanged appearance of the patella with inferior patellar 2 cm corticated ossification. Minimal tric ompartmental osteoarthritis without acute fracture, dislocation, osseous erosion or large joint effus ion. IMPRESSION: Minimal osteoarthritis without acute fracture or dislocation. ACT 112: Negative or not required by law. The above report was generated using voice recognition software. It may contain grammatical, syntax o r spelling errors. Electronically signed by: Shahram Mcdonald M.D. 09/15/2024 9:10 AM
[2024-09-15 09:12] LABS: Partial Thromboplastin Ratio 1.2; Partial Thromboplastin Time 33 Seconds (21-31); Prothrombin Time 10.4 Seconds (9.0-12.0)
--- NOTE | 2024-09-15 09:16 | XRay Report ---
XR hip LT 2V w pelvis CLINICAL HISTORY: Left hip pain. COMPARISON: CT of the abdomen and pelvis January 01, 2024. Left hip radiographs 03/24/2024. FINDINGS: Sacroiliac joints and symphysis pubis are intact. There are no acute fractures within the pelvis or hips. Moderate left hip osteoarthritis is present with joint space narrowing and osteophyto sis. There is mild right hip osteoarthritis. IMPRESSION: 1. No fractures within the pelvis or hips. 2. Moderate left hip osteoarthritis. ACT 112: Negative or not required by law. Electronically signed by: Henok Rosenthal M.D. 09/15/2024 9:15 AM
[2024-09-15 09:17] LABS: Troponin I High Sensitivity < 2.3 pg/ml (0-20)
[2024-09-15] MEDS: OPTIRAY 320 100ml IV ONE (09:26)
--- NOTE | 2024-09-15 10:20 | CT Scan Report ---
LEFT HIP CT CLINICAL HISTORY: will not bear weight COMPARISON STUDY: Left hip radiographs performed earlier today. Pelvis CT April 15, 2019. TECHNIQUE: Axial images of the left hip were obtained. Sagittal and coronal reformats were viewed. Pl ease note that the abdomen and pelvis CT will be reported separately. A dose lowering technique was u tilized adhering to the principles of ALARA. FINDINGS: There are no fractures within the left hip. No osseous lesions are present. There is no rishabh dence for avascular necrosis of the left femoral head. There is moderate left hip joint space narrowi ng with osteophytosis. No abnormality within the adjacent soft tissues is identified by CT. There are no fractures within visualized portions of the left hemipelvis. IMPRESSION: 1. No fractures within the left hip. 2. Moderate left hip osteoarthritis. ACT 112: Negative or not required by law. Electronically signed by: Henok Rosenthal M.D. 09/15/2024 10:18 AM
--- NOTE | 2024-09-15 10:23 | CT Scan Report ---
ABDOMEN AND PELVIS CT WITH IV CONTRAST CT DOSE: 2204.69 mGy.cm HISTORY: Acute lower abdominal pain LOWER abd pain TECHNIQUE: Multiaxial CT images of the abdomen and pelvis were performed following the IV administrat ion of 94 cc of Optiray, A dose lowering technique was utilized adhering to the principles of ALARA. COMPARISON STUDY: CT left hip same day, CT abdomen and pelvis 01/01/2024 FINDINGS: Punctate calcified granuloma of the left lower lobe. No pneumatosis or pneumoperitoneum. U nremarkable spleen, pancreas, gallbladder and adrenal glands. Hepatic steatosis. Patency of the hepat ic and portal veins. Unremarkable kidneys without hydronephrosis. Small cyst of the interpolar right kidney. Probable small fat filled inguinal hernias. Mild atherosclerosis of the abdominal aorta witho ut aneurysm. There is no bowel obstruction or bowel wall thickening. No ascites or mesenteric inflammation. Mild c olonic fecal retention. Normal appendix. Minimal subcutaneous edema lateral to the left hip. Spondyli tic spurring of the spine. No acute fracture identified. Moderate osteoarthritis of the hips. IMPRESSION: 1. No acute intra-abdominal or intrapelvic abnormality identified. 2. No acute fracture. ACT 112: Negative or not required by law. The above report was generated using voice recognition software. It may contain grammatical, syntax o r spelling errors. Electronically signed by: Shahram Mcdonald M.D. 09/15/2024 10:21 AM
--- NOTE | 2024-09-15 10:25 | XRay Report ---
XR knee RT 1 or 2V routine CLINICAL HISTORY: Right knee pain. COMPARISON: Right knee radiographs March 24, 2024. FINDINGS: Alignment of the right knee is anatomic. No acute fracture. There is no joint effusion. A bony excrescence arising from the inferior patella at the origin of the patellar tendon is unchanged. Spurring of the tibial tubercle is unchanged. There are no osseous lesions. There are mild degenerat jenae changes within the right knee. IMPRESSION: 1. No fractures within the right knee. No right knee joint effusion. 2. No change since radiographs of March 24, 2024. ACT 112: Negative or not required by law. Electronically signed by: Henok Rosenthal M.D. 09/15/2024 10:24 AM
--- NOTE | 2024-09-15 11:12 | History & Physical Report ---
Date of Service September 15, 2024 Assessment & Plan (1) Ambulatory dysfunction: (2) Osteoarthritis: (3) Unable to bear weight on lower extremity: Plan Patient is a 54-year-old male with past medical history of microcephalus, intellectual disability, epilepsy, depression, and nonverbal. he presented from [place] with his caregiver due to the ability to bear weight due to left hip pain. Patient is typically able to stand up and walk on his own. Patient was evaluated in the ED 09/13 in which x-rays and left venous Doppler were negative. Patient returned today 09/15 in which CRP was found to be 1.77, x-rays of bilateral knees and left hip showed osteoarthritis, otherwise diagnostic imaging including AP CT and hip CT were essentially negative. He is being admitted for ambulatory dysfunction to have PT OT evals, orthopedics team consulted, and to trend CRP. #Ambulatory dysfunction/inability to bear weight Suspect due to left hip pain, will not initiate step when attempt to stand up in ED caregiver reports no recent trauma Bilateral knee and hip x-rays show osteoarthritis AP CT and hip CT negative for acute changes left venous Doppler negative 09/13 CRP elevated 1.77 ( appears elevated at baseline, 2.55 05/2024); will trend CRP uric acid negative, 4.9 electrolytes stable CK, carbamazepine level, and tick borne panel ordered PT/OT ordered Consult orthopedics, may be considered for steroid injections? Tylenol prn, Toradol prn, and Oxycodone 5mg (for pain not relieved by #1 and 2) UA ordered fall and aspiration precautions Chronic stable diagnoses: HLDcontinue atorvastatin Depressioncontinue buspirone, paroxetine, and fluoxetine intellectual disabilitycontinue Ativan 0.5mg daily epilepsycontinue carbamazepine, Keppra, and lamotrigine GERDcontinue Pepcid and PPI chronic constipationcontinue daily stool softeners VTE ppx: SCDs Diet: regular, home p.o. medications in applesauce/pudding Dispo: MedSurg Admission and Anticipated Discharge Date Admission Date: 09/15/24 History of Present Illness Chief Complaint: left hip pain Primary Care Provider: Jessica Sanchez MD Patient is a 54-year-old male with past medical history of microcephalus, intellectual disability, epilepsy, depression, and nonverbal. he presented from [place] with his caregiver due to the ability to bear weight due to left hip pain. Patient is typically able to stand up and walk on his own. Patient was evaluated in the ED 09/13 in which x-rays and left venous Doppler were negative. Patient returned today 09/15 in which CRP was found to be 1.77, x-rays of bilateral knees and left hip showed osteoarthritis, otherwise diagnostic imaging including AP CT and hip CT were essentially negative. He is being admitted for ambulatory dysfunction to have PT OT evcecilia, orthopedics team consulted, and to trend CRP. Patient seen at bedside with caregiver present. She stated that on the patient developed what she believes to be knee pain, she is unsure of what leg or if it is his hip because he is nonverbal. He typically is able to assist w ith transfers to the wheelchair and walk at baseline, he has been unable to do so for several days. Patient does wince in pain when his knees are touched. She denies any trauma to the legs. He did receive his medications this morning. She believes he is full code, however she is reaching out to facility worker and will update if changes. Patient is typically able to take his home medications in applesauce and is on a regular diet. Of note handoff from ER provider stated that patient will not initiate a step when tried to stand up patient and walk him. He does tolerate a leg roll. Allergies Allergy/AdvReac Type Severity Reaction Status Date / Time NSAIDS (Non-Steroidal AdvReac Intermediate Gastrointestinal Verified 07/15/24 15:03 Anti-Inflamma Upset Home Medications Medication Instructions Recorded Confirmed Type fluoxetine 40 mg capsule 20 mg PO QPM 01/01/20 09/15/24 History lorazepam 0.5 mg tablet 0.5 mg PO DAILY 10/04/20 09/15/24 History Highback manual wheelchair #1 ea 08/31/21 06/30/24 Rx Wheelchair (Manual) (Manual #1 ea 08/31/21 06/30/24 Rx Wheelchair) buspirone 15 mg tablet 15 mg PO TID 11/02/21 09/15/24 History fluoride (sodium) 1.1 % dental 1 applic dental BID 11/02/21 09/15/24 History cream (Denta 5000 Plus) acetaminophen 500 mg tablet 1,000 mg PO Q6H PRN Fever Or Pain 07/04/22 09/15/24 History (Tylenol Extra Strength) Batsheva Sling #1 ea 09/14/22 06/30/24 Rx Batsheva lift #1 ea 09/20/22 06/30/24 Rx glycerin (adult) (Fleet Glycerin 1 supp GA DIRECTED PRN 12/12/22 09/15/24 Rx (Adult) rectal suppository) Constipation #25 ea syringe with needle, safety 1 mL #1 ea 08/09/23 06/30/24 Rx 25 gauge x 1" (Easy Touch FlipLock Syringe) miconazole nitrate 2 % topical 1 applic topical BID #85 grams 08/29/23 09/15/24 Rx powder (Remedy Phytoplex Antifungal) Saccharomyces boulardii 250 mg 250 mg PO BID #60 caps 11/22/23 09/15/24 Rx capsule (Florastor) lamotrigine 200 mg tablet 400 mg (2 x 200 mg) PO BID #120 11/22/23 09/15/24 Rx tabs latanoprost 0.005 % eye drops 1 drp OPB QPM 03/19/24 09/15/24 History loperamide 2 mg capsule 2 - 4 mg PO Q6H PRN Diarrhea 03/19/24 09/15/24 History carbamazepine 200 mg tablet 200 mg PO BID #60 tabs 05/05/24 09/15/24 Rx docusate sodium 100 mg capsule 100 mg PO TIDM constipation #90 05/27/24 09/15/24 Rx caps famotidine 40 mg tablet 40 mg PO HS #90 tabs 05/27/24 09/15/24 Rx levetiracetam 1,000 mg tablet 1,000 mg PO BID #60 tabs 06/23/24 09/15/24 Rx atorvastatin 10 mg tablet 10 mg PO QPM #90 tabs 06/25/24 09/15/24 Rx cyanocobalamin (vitamin B-12) 2,000 mcg PO DAILY #30 tabs 06/25/24 09/15/24 Rx 2,000 mcg tablet Neosporin Plus Pain Relief 3.5 1 applic topical TID PRN 07/03/24 09/15/24 Rx mg-10,000 unit-10 mg/gram topical disinfection #28.3 grams cream (wxvybsee-bkcgtpuoj-tynbmnczu) lorazepam 0.5 mg tablet (Ativan) 0.5 mg PO DAILY DENTAL PROCEDURES 07/15/24 09/15/24 History cholecalciferol (vitamin D3) 25 3,000 unit PO DAILY #90 tabs 08/06/24 09/15/24 Rx mcg (1,000 unit) tablet Oral Swabstick 1 ea dental BID 09/15/24 History lactulose 10 gram/15 mL oral 30 ml PO TID 09/15/24 09/15/24 History solution magnesium hydroxide 400 mg/5 mL 30 - 60 ml PO HS PRN Constipation 09/15/24 09/15/24 History oral suspension (Milk of Magnesia) pantoprazole 40 mg tablet,delayed 40 mg PO QAM 09/15/24 09/15/24 History release paroxetine HCl 30 mg tablet 30 mg PO PM 09/15/24 09/15/24 History psyllium husk (with sugar) 3 1 ea PO DAILY 09/15/24 09/15/24 History gram/11 gram oral powder (Fiber (psyllium husk-sugar)) Past Med/Surg History Problem List Acute leg pain (Acute) Unable to bear weight on lower extremity (Acute) Osteoarthritis (Acute) Ambulatory dysfunction Acute knee pain (Acute) Sensorineural hearing loss (SNHL) of both ears Falls frequently Vitamin B12 deficiency 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) Seizure (Chronic) Acne (Chronic 02/28/13) Migraines (Chronic 02/28/13) Microcephalus (Chronic) Impulse control disorder (Chronic) Hyponatremia (Chronic) Hyperlipidemia (Chronic 02/28/13) High triglycerides (Chronic) Hearing loss (Chronic 02/28/13) GERD without esophagitis (Chronic) Enuresis (Chronic) Eczema (Chronic) Depression (Chronic) 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) Chronic constipation (Chronic) Anxiety disorder (Chronic 02/28/13) Acquired intellectual disability (Chronic) Epilepsy Obesity Gait disturbance Urinary incontinence Sebaceous cyst Acute UTI (urinary tract infection) (Acute) Gait instability (Acute) Vitamin D deficiency Medical History SIRS (systemic inflammatory response syndrome) Fever Cyst ON SCALP Diverticulitis Hiatal hernia Gastritis Hyperlipidemia Strabismus Microcephaly Hearing deficit GERD (gastroesophageal reflux disease) Acquired intellectual disability Nonverbal History provided by [facility] facility History of seizure Date of last seizure unknown, information obtained by nurse from [facility] Depression Anxiety Impulse control disorder Cortical blindness Surgical History History of esophagogastroduodenoscopy (EGD) History of colonoscopy No history of previous surgery Family History Other Family history of diabetes mellitus Heart disease Unknown family medical history Social History Smoking Status: Never smoker Second Hand Exposure: No; Do You Dip or Chew Tobacco: No; Hx Alcohol Use: No Hx Substance Use: No Preferred Language: Wolof Communication Ability: nonverbal Communication Ability Comment: slap across chest is no, shake hand is yes Communication Tools: Physical Gestures Visual Impairment: Blindness Hearing Ability: Normal 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: No Beliefs That Will Affect Care: None marital status: Single Current Living Situation: Other Current Living Situation Comment: prison - [facility] current occupational status: unemployed and disabled Feels Safe at Home: Yes Childhood Exposure to Second-Hand Smoke: No Diet: other Diet Comment: Chopped caffeine: No during the past year weight has: increased > 10 lbs Dental Care, Regularly: Yes Physical Activity Frequency: 1-2 Times per Week Seatbelt Use: always Sunscreen Use: Yes Assistive Devices: Wheelchair Review of Systems Review of Systems: Unable to obtain given intellectual disability/nonverbal Physical Exam Physical Exam: The patient is awake, nonverbal. HEENT- EOMI, mucous membranes moist. Hearing grossly intact. Heart-normal S1 and S2. No murmurs, rubs or gallops. Lungs-clear bilaterally, no respiratory distress, no accessory muscle use. Abdomen-normal bowel sounds and soft. No ascites noted. Non-tender. Extremities- no clubbing, cyanosis, or edema. Pain with palpation of bilateral knees. Results & Data Results & Data Vital Signs (Past 12 Hours) Vital Signs Temp Pulse Resp BP Pulse Ox O2 Del Method 09/15/24 10:33 89 15 93 09/15/24 10:30 141/91 H 09/15/24 10:27 91 H 13 09/15/24 10:06 91 H 15 09/15/24 10:00 170/116 H 09/15/24 09:57 88 19 09/15/24 09:42 91 H 17 09/15/24 09:09 94 H 15 90 09/15/24 09:08 107 H 09/15/24 09:04 154/103 H 09/15/24 08:43 97 Room Air 09/15/24 08:43 98 Room Air 09/15/24 08:42 36.5 C 107 H 20 136/89 97 Room Air Laboratory Results Reviewed CBC, CMP, CRP Diagnostic Findings reviewed AP CT, hip CT, CXR, hip XR, left knee XR, right knee XR Medications Administered EDmorphine 4 Mg IV, Zofran 4 Mg IV AdmissionTylenol 1G IV, Toradol 10 Mg IV as needed Code Status & VTE Plan Code Status Full code VTE Prophylaxis Plan VTE Prophylaxis will be ordered: Yes Supervising Physician Co-Signing Physician Notes Patient seen and examined, chart reviewed, case discussed with Kelle Jules PA-C and I agree with the assessment and plan as above except as otherwise noted Labs and images reviewed Seen at the bedside. No acute distress. History limited as patient is nonverbal. Tolerates logroll. Per report has not been able to bear weight due to pain. No overlying warmth/tenderness. Seen by orthopedics, pending bone scan. Agree with above. PG Care Time/CCT Total # of Minutes Spent Total Time Spent with Patient: Total time spent is greater than 50% in coordination of care (as documented) at patient's floor/unit and/or counseling patient: Coding Level of Care Code 87826 INT INP/OBS CARE 3/75MIN Diagnoses Ambulatory dysfunction R26.2 Osteoarthritis M19.90 Unable to bear weight on lower extremity R26.89
--- NOTE | 2024-09-15 11:25 | Electrocardiogram Report ---
Test Reason : Blood Pressure : */* mmHG Vent. Rate : 95 BPM Atrial Rate : 95 BPM P-R Int : 118 ms QRS Dur : 88 ms QT Int : 364 ms P-R-T Axes : 57 78 42 degrees QTcB Int : 457 ms Sinus rhythm with occasional Premature ventricular complexes Otherwise normal ECG When compared with ECG of 19-Mar-2024 15:02, No significant change was found Confirmed by Girma Crocker ([id number]) on 09/15/2024 11:25:36 AM Referred By: REFERRED SELF Confirmed By: Girma Crocker
[2024-09-15 11:39] LABS: Creatine Kinase 163 U/L (30-223)
[2024-09-15] MEDS ORDERED: ONDANSETRON INJ 2 MG/ML 2 ML VIAL IV PRN (14:25)
[2024-09-15] MEDS ORDERED: ACETAMINOPHEN 1,000 MG/100 ML VIAL IV PRN (14:25)
[2024-09-15] MEDS ORDERED: MELATONIN 3 MG TAB PO PRN (14:25)
[2024-09-15] MEDS: PSYLLIUM or GUAR GUM FIBER 4GM PACKET PO SCH (15:47)
[2024-09-15] MEDS: busPIRone 15 MG TAB PO SCH ×2 (15:48→19:31)
[2024-09-15] MEDS: DOCUSATE SODIUM 100 MG CAP PO SCH (15:48)
[2024-09-15] MEDS: LORazepam 0.5 MG TAB PO SCH (15:48)
--- NOTE | 2024-09-15 16:14 | Orthopedic Consultation ---
Date of Service September 15, 2024 Assessment & Plan (1) Ambulatory dysfunction: He was seen and examined by Dr. Dominguez. His xrays do not look terrible, the cortical irregularity on the left proximal femur wouldn't account for his pain when evaluating the right knee/leg. It is difficult to tell in this situation wh ere his pain is exactly. We will order a bone scan of his lower extremities for further evaluation. History of Present Illness Reason for Consultation: . Requesting Physician: . Attending Physician: Lb León MD .54 year old patient with a history of some intellectual disability and is nonverbal, being admitted to the hospitalist service for ambulatory dysfunction, believed to be secondary to arthritis/knee or hip pain. He has a caregiver here with him presently in the ER. She states that he is normally ambulatory but 2 days ago he seemed very stiff and was having difficulty walking. He was brought here to the ER on 09/13 and later discharged. He symptoms seemed to worsen and they returned to the ER today. No known history of any trauma at this time. Caregiver denies that he has had any fever/chills or seemed to have any other joint pain. crp was slightly elevated. Allergies Allergy/AdvReac Type Severity Reaction Status Date / Time NSAIDS (Non-Steroidal AdvReac Intermediate Gastrointestinal Verified 07/15/24 15:03 Anti-Inflamma Upset Home Medications Medication Instructions Recorded Confirmed Type fluoxetine 40 mg capsule 20 mg PO QPM 01/01/20 09/15/24 History lorazepam 0.5 mg tablet 0.5 mg PO DAILY 10/04/20 09/15/24 History Highback manual wheelchair #1 ea 08/31/21 06/30/24 Rx Wheelchair (Manual) (Manual #1 ea 08/31/21 06/30/24 Rx Wheelchair) buspirone 15 mg tablet 15 mg PO TID 11/02/21 09/15/24 History fluoride (sodium) 1.1 % dental 1 applic dental BID 11/02/21 09/15/24 History cream (Denta 5000 Plus) acetaminophen 500 mg tablet 1,000 mg PO Q6H PRN Fever Or Pain 07/04/22 09/15/24 History (Tylenol Extra Strength) Batsheva Sling #1 ea 09/14/22 06/30/24 Rx Batsheva lift #1 ea 09/20/22 06/30/24 Rx glycerin (adult) (Fleet Glycerin 1 supp PA DIRECTED PRN 12/12/22 09/15/24 Rx (Adult) rectal suppository) Constipation #25 ea syringe with needle, safety 1 mL #1 ea 08/09/23 06/30/24 Rx 25 gauge x 1" (Easy Touch FlipLock Syringe) miconazole nitrate 2 % topical 1 applic topical BID #85 grams 08/29/23 09/15/24 Rx powder (Remedy Phytoplex Antifungal) Saccharomyces boulardii 250 mg 250 mg PO BID #60 caps 11/22/23 09/15/24 Rx capsule (Florastor) lamotrigine 200 mg tablet 400 mg (2 x 200 mg) PO BID #120 11/22/23 09/15/24 Rx tabs latanoprost 0.005 % eye drops 1 drp OPB QPM 03/19/24 09/15/24 History loperamide 2 mg capsule 2 - 4 mg PO Q6H PRN Diarrhea 03/19/24 09/15/24 History carbamazepine 200 mg tablet 200 mg PO BID #60 tabs 05/05/24 09/15/24 Rx docusate sodium 100 mg capsule 100 mg PO TIDM constipation #90 05/27/24 09/15/24 Rx caps famotidine 40 mg tablet 40 mg PO HS #90 tabs 05/27/24 09/15/24 Rx levetiracetam 1,000 mg tablet 1,000 mg PO BID #60 tabs 06/23/24 09/15/24 Rx atorvastatin 10 mg tablet 10 mg PO QPM #90 tabs 06/25/24 09/15/24 Rx cyanocobalamin (vitamin B-12) 2,000 mcg PO DAILY #30 tabs 06/25/24 09/15/24 Rx 2,000 mcg tablet Neosporin Plus Pain Relief 3.5 1 applic topical TID PRN 07/03/24 09/15/24 Rx mg-10,000 unit-10 mg/gram topical disinfection #28.3 grams cream (dpdzflsd-kajabtyep-rvfltxvux) lorazepam 0.5 mg tablet (Ativan) 0.5 mg PO DAILY DENTAL PROCEDURES 07/15/24 09/15/24 History cholecalciferol (vitamin D3) 25 3,000 unit PO DAILY #90 tabs 08/06/24 09/15/24 Rx mcg (1,000 unit) tablet Oral Swabstick 1 ea dental BID 09/15/24 History lactulose 10 gram/15 mL oral 30 ml PO TID 09/15/24 09/15/24 History solution magnesium hydroxide 400 mg/5 mL 30 - 60 ml PO HS PRN Constipation 09/15/24 09/15/24 History oral suspension (Milk of Magnesia) pantoprazole 40 mg tablet,delayed 40 mg PO QAM 09/15/24 09/15/24 History release paroxetine HCl 30 mg tablet 30 mg PO PM 09/15/24 09/15/24 History psyllium husk (with sugar) 3 1 ea PO DAILY 09/15/24 09/15/24 History gram/11 gram oral powder (Fiber (psyllium husk-sugar)) Past Med/Surg History Problem List Acute leg pain (Acute) Unable to bear weight on lower extremity (Acute) Osteoarthritis (Acute) Ambulatory dysfunction Acute knee pain (Acute) Sensorineural hearing loss (SNHL) of both ears Falls frequently Vitamin B12 deficiency 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) Seizure (Chronic) Acne (Chronic 02/28/13) Migraines (Chronic 02/28/13) Microcephalus (Chronic) Impulse control disorder (Chronic) Hyponatremia (Chronic) Hyperlipidemia (Chronic 02/28/13) High triglycerides (Chronic) Hearing loss (Chronic 02/28/13) GERD without esophagitis (Chronic) Enuresis (Chronic) Eczema (Chronic) Depression (Chronic) 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) Chronic constipation (Chronic) Anxiety disorder (Chronic 02/28/13) Acquired intellectual disability (Chronic) Epilepsy Obesity Gait disturbance Urinary incontinence Sebaceous cyst Acute UTI (urinary tract infection) (Acute) Gait instability (Acute) Vitamin D deficiency Medical History SIRS (systemic inflammatory response syndrome) Fever Cyst ON SCALP Diverticulitis Hiatal hernia Gastritis Hyperlipidemia Strabismus Microcephaly Hearing deficit GERD (gastroesophageal reflux disease) Acquired intellectual disability Nonverbal History provided by [facility] facility History of seizure Date of last seizure unknown, information obtained by nurse from [facility] records Depression Anxiety Impulse control disorder Cortical blindness Surgical History History of esophagogastroduodenoscopy (EGD) History of colonoscopy No history of previous surgery Family History Other Family history of diabetes mellitus Heart disease Unknown family medical history Social History Smoking Status: Never smoker Second Hand Exposure: No; Do You Dip or Chew Tobacco: No; Hx Alcohol Use: No Hx Substance Use: No Preferred Language: Azeri Communication Ability: Unable Communication Ability Comment: slap across chest is no, shake hand is yes Communication Tools: Physical Gestures Visual Impairment: Blindness Hearing Ability: Normal Video Library Assistant Required: No Beliefs That Will Affect Care: None marital status: Single Current Living Situation: Other Current Living Situation Comment: [facility] current occupational status: unemployed and disabled Feels Safe at Home: Yes Childhood Exposure to Second-Hand Smoke: No Diet: other Diet Comment: Chopped caffeine: No during the past year weight has: increased > 10 lbs Dental Care, Regularly: Yes Physical Activity Frequency: 1-2 Times per Week Seatbelt Use: always Sunscreen Use: Yes Assistive Devices: Walker and Wheelchair Review of Systems All systems reviewed & are unremarkable except as noted in HPI & below. Physical Exam . Alert, nonverbal. NAD Bilateral lower extremities: No knee effusions or swelling of his legs, no erythema or warmth around the knees. He does appear to clearly have some discomfort/pain with exam of his legs, based on his facial expression. Results & Data Results & Data Laboratory Results . Diagnostic Findings .xrays of the knees and left hip reviewed, as well as left hip ct scan. He does have some mild arthritis of his joints, and ossifications inferiorly of his patella bilaterally. On the left hip xray there is some cortical irregularity of the medial side of the proximal femur, possibly representing a stress fracture. PG Care Time/CCT Total # of Minutes Spent Total Time Spent with Patient: Total time spent is greater than 50% in coordination of care (as documented) at patient's floor/unit and/or counseling patient: Coding Level of Care Code 68662 IN/OBS CONSULT LVL 3,45M Diagnoses Ambulatory dysfunction R26.2
[2024-09-15] MEDS: lamoTRIgine 100 MG TAB PO SCH (17:45)
[2024-09-15] MEDS: levETIRAcetam 500 MG TAB PO SCH (17:47)
[2024-09-15] MEDS: carBAMazepine 200 MG TABLET PO SCH (19:31)
[2024-09-15] MEDS ORDERED: NON-FORMULARY MEDICATION (Paroxetine Hcl 30 mg tablet) PO SCH (21:00)
[2024-09-15] MEDS: PARoxetine HCL 20 MG TAB PO SCH (22:10)
[2024-09-15] MEDS: LACTULOSE SYRUP 20 GM/30 ML UDC PO SCH (22:10)
[2024-09-15] MEDS: ATORVASTATIN 10 MG TAB PO SCH (22:10)
[2024-09-15] MEDS: FLUoxetine HCL 20 MG CAP PO SCH (22:10)
[2024-09-15] MEDS: FAMOTIDINE 40 MG TABLET PO SCH (22:10)
[2024-09-15] MEDS: PARoxetine HCL 10 MG TAB PO SCH (22:10)
[2024-09-15] MEDS: LATANOPROST 0.005% OP SOLN 2.5 ML BTL OPB SCH (22:11)
[2024-09-15] MEDS: oxyCODONE HCL IR 5 MG TAB (IMMEDIATE RELEASE) PO PRN (22:27)
[2024-09-16] MEDS: KETOROLAC TROMETHAMINE 15 MG/ML VIAL IV PRN (05:28)
[2024-09-16 08:06] LABS: Magnesium 2.1 mg/dl (1.7-2.4)
[2024-09-16] MEDS: PANTOprazole 40 MG TAB PO SCH (08:24)
--- NOTE | 2024-09-16 16:12 | Hospitalist Progress Note ---
Date of Service September 16, 2024 Assessment & Plan (1) Ambulatory dysfunction: (2) Osteoarthritis: (3) Unable to bear weight on lower extremity: Plan Patient is a 54-year-old male with past medical history of microcephalus, intellectual disability, epilepsy, depression, and nonverbal. he presented from [facility] with his caregiver due to the ability to bear weight due to left hip pain. Patient is typically able to stand up and walk on his own. Patient was evaluated in the ED 09/13 in which x-rays and left venous Doppler were negative. Patient returned today 09/15 in which CRP was found to be 1.77, x-rays of bilateral knees and left hip showed osteoarthritis, otherwise diagnostic imaging including AP CT and hip CT were essentially negative. He is being admitted for ambulatory dysfunction to have PT OT evals, orthopedics team consulted, and to trend CRP. #Ambulatory dysfunction/inability to bear weight Suspect due to left hip pain, will not initiate step when attempt to stand up in ED caregiver reports no recent trauma Bilateral knee and hip x-rays show osteoarthritis AP CT and hip CT negative for acute changes left venous Doppler negative 09/13 CRP elevated 1.77 ( appears elevated at baseline, 2.55 05/2024); will trend CRP uric acid negative, 4.9 electrolytes stable CK, carbamazepine level, and tick borne panel ordered PT/OT ordered Consult orthopedics, may be considered for steroid injections? Tylenol prn, Toradol prn, and Oxycodone 5mg (for pain not relieved by #1 and 2) UA ordered fall and aspiration precautions per ortho 1) Ambulatory dysfunction: He was seen and examined by Dr. Dominguez. His xrays do not look terrible, the cortical irregularity on the left proximal femur wouldn't account for his pain when evaluating the right knee/leg. It is difficult to tell in this situation where his pain is exactly. We will order a bone scan of his lower extremities for further evaluation. Chronic stable diagnoses: HLDcontinue atorvastatin Depressioncontinue buspirone, paroxetine, and fluoxetine intellectual disabilitycontinue Ativan 0.5mg daily epilepsycontinue carbamazepine, Keppra, and lamotrigine GERDcontinue Pepcid and PPI chronic constipationcontinue daily stool softeners VTE ppx: SCDs Diet: regular, home p.o. medications in applesauce/pudding Dispo: [facility] Admission and Anticipated Discharge Date Admission Date: September 15, 2024 Physical Exam Physical Exam: he patient is awake, nonverbal. HEENT- EOMI, mucous membranes moist. Hearing grossly intact. Heart-normal S1 and S2. No murmurs, rubs or gallops. Lungs-clear bilaterally, no respiratory distress, no accessory muscle use. Abdomen-normal bowel sounds and soft. No ascites noted. Non-tender. Extremities- no clubbing, cyanosis, or edema. Pain with palpation of bilateral knees. Results & Data Results & Data Vital Signs (Past 12 Hours) Vital Signs Temp Pulse Resp BP Pulse Ox O2 Del Method 09/16/24 14:44 37.0 C 96 H 18 115/75 94 Room Air 09/16/24 07:26 37.0 C 80 18 142/89 H 96 Room Air PG Care Time/CCT Total # of Minutes Spent Total Time Spent with Patient: Total time spent is greater than 50% in coordination of care (as documented) at patient's floor/unit and/or counseling patient: Coding Level of Care Code 79457 SUB INP/OBS CARE 2/35MIN Diagnoses Ambulatory dysfunction R26.2 Osteoarthritis M19.90 Unable to bear weight on lower extremity R26.89 Time Spent (min) 30
--- NOTE | 2024-09-16 16:13 | Nuclear Medicine Report ---
BONE SCAN OF THE PELVIS, HIPS AND LOWER EXTREMITIES CLINICAL HISTORY: Lower extremity pain/ambulatory dysfunction. Right knee radiographs September 15, 2024. CT of the abdomen and pelvis and left hip CT September 15, 2024. COMPARISON STUDY: May radiographs September 15, 2024. CT of the abdomen and pelvis and left hip CT September 15, 2024. TECHNIQUE: 25.4 mCi of technetium 99m MDP was injected IV at 12:00 PM on September 16, 2024. 3 hours follo wing radiotracer injection, imaging of the pelvis, hips, femurs and proximal to mid tibia and fibula were obtained in the anterior projection. FINDINGS: This exam is compromised given difficulty positioning. Only anterior imaging could be perfo rmed and the ankles and feet were not imaged. Images of the pelvis are degraded by radiotracer within the bladder but no significant radiotracer uptake within the pelvis, hips, femurs or visualized port ions of the tibial or fibula is identified. There is marked radiotracer uptake within the left patell a. Although nonspecific, this could correspond to a large osteophyte arising from the inferior aspect the patella. Given adjacent lucency, a fracture through the base of the osteophyte cannot be exclude d. IMPRESSION: 1. Marked radiotracer uptake within the left patella. Although nonspecific, this could correspond to a large osteophyte arising from the inferior patella and the lucency through the base of the osteophy te on radiographs could represent an acute to subacute fracture. 2. No additional sites of abnormal radiotracer uptake although exam compromised, as detailed above. ACT 112: Negative or not required by law. Electronically signed by: Henok Rosenthal M.D. 09/16/2024 4:11 PM
--- NOTE | 2024-09-17 07:19 | Orthopedic Progress Note ---
Date of Service September 17, 2024 Assessment & Plan (1) Left knee pain: He was seen and examined by Dr Dominguez, imaging including bone scan and xrays reviewed. It does look like he has a fracture of the patella osteophyte of the left knee. This does not need surgery. We will order a knee immobilizer and see how he tolerates wearing this. He would need to wear this for about a month. He can weight bear as tolerated on this. Subjective . 54 year old patient with ambulatory dysfunction, had bone scan performed yesterday. Nobody else present with him at this time. Review of Systems All systems reviewed & are unremarkable except as noted in HPI & below. Physical Exam .awake, nonverbal. lower extremities: Does seem to have some mild soft tissue swelling anteriorly with the left knee, appears tender anterior left knee, and moving left knee less at this time compared to the right leg. No knee effusion. Skin intact. Results & Data Results & Data Laboratory Results . Diagnostic Findings .bone scan reviewed and shows increased uptake at the left knee. xrays reviewed again and compared to previous knee xrays. He has large osteophytes at the inferior aspect of the patella with likely new lucency through this osteophyte of the left knee. PG Care Time/CCT Total # of Minutes Spent Total Time Spent with Patient: Total time spent is greater than 50% in coordination of care (as documented) at patient's floor/unit and/or counseling patient: Coding Level of Care Code 08433 SUB INP/OBS CARE 2/35MIN Diagnoses Left knee pain M25.562
[2024-09-17 08:42] LABS: Hematocrit (blood only) 44.2 % (42.0-52.0); Hemoglobin 14.4 g/dl (14.0-18.0); Mean Corpuscular Hgb Conc 32.6 g/dL (32.0-36.0); Mean Corpuscular Volume 89.1 fL (80.0-100.0); Mean Platelet Volume 8.5 fL (9.4-12.4); Platelet Count 196 K/uL (130-400); RDW Standard Deviation 42.5 fL (36.4-46.3); Red Blood Count 4.96 M/uL (4.70-6.10); White Blood Count 4.94 K/ul (4.8-10.8)
[2024-09-17 09:00] LABS: Albumin Globulin Ratio 1.1 (0.9-2); Albumin Level 4.1 gm/dl (3.4-5.0); BUN Creatinine Ratio 18.5 (10-20); Bilirubin,Total 0.3 mg/dl (0.2-1.0); C Reactive Protein 2.58 mg/dl (0-0.5); Creatinine Clr Calc Pharmacy 113.3 ml/min; Globulin 3.9 gm/dl (2.5-4.0)
[2024-09-17] MEDS: ACETAMINOPHEN 500 MG TAB PO PRN (13:53)
--- NOTE | 2024-09-17 18:58 | Hospitalist Progress Note ---
Date of Service September 17, 2024 Assessment & Plan (1) Ambulatory dysfunction: (2) Osteoarthritis: (3) Unable to bear weight on lower extremity: Plan Patient is a 54-year-old male with past medical history of microcephalus, intellectual disability, epilepsy, depression, and nonverbal. he presented from [employer] with his caregiver due to the ability to bear weight due to left hip pain. Patient is typically able to stand up and walk on his own. Patient was evaluated in the ED 09/13 in which x-rays and left venous Doppler were negative. Patient returned today 09/15 in which CRP was found to be 1.77, x-rays of bilateral knees and left hip showed osteoarthritis, otherwise diagnostic imaging including AP CT and hip CT were essentially negative. He is being admitted for ambulatory dysfunction to have PT OT evals, orthopedics team consulted, and to trend CRP. #Ambulatory dysfunction/inability to bear weight Suspect due to left hip pain, will not initiate step when attempt to stand up in ED caregiver reports no recent trauma Bilateral knee and hip x-rays show osteoarthritis AP CT and hip CT negative for acute changes left venous Doppler negative 09/13 CRP elevated 1.77 ( appears elevated at baseline, 2.55 05/2024); will trend CRP uric acid negative, 4.9 electrolytes stable CK, carbamazepine level, and tick borne panel ordered PT/OT ordered Consult orthopedics, may be considered for steroid injections? Tylenol prn, Toradol prn, and Oxycodone 5mg (for pain not relieved by #1 and 2) UA ordered fall and aspiration precautions per ortho 1) Left knee pain: He was seen and examined by Dr Dominguez, imaging including bone scan and xrays reviewed. It does look like he has a fracture of the patella osteophyte of the left knee. This does not need surgery. We will order a knee immobilizer and see how he tolerates wearing this. He would need to wear this for about a month. He can weight bear as tolerated on this. Chronic stable diagnoses: HLDcontinue atorvastatin Depressioncontinue buspirone, paroxetine, and fluoxetine intellectual disabilitycontinue Ativan 0.5mg daily epilepsycontinue carbamazepine, Keppra, and lamotrigine GERDcontinue Pepcid and PPI chronic constipationcontinue daily stool softeners VTE ppx: SCDs Diet: regular, home p.o. medications in applesauce/pudding Dispo: [facility] Admission and Anticipated Discharge Date Admission Date: September 15, 2024 Subjective found a patellar fracture in left knee. Physical Exam Physical Exam: he patient is awake, nonverbal. HEENT- EOMI, mucous membranes moist. Hearing grossly intact. Heart-normal S1 and S2. No murmurs, rubs or gallops. Lungs-clear bilaterally, no respiratory distress, no accessory muscle use. Abdomen-normal bowel sounds and soft. No ascites noted. Non-tender. Extremities- no clubbing, cyanosis, or edema. Pain with palpation of bilateral knees. Results & Data Results & Data Vital Signs (Past 12 Hours) Vital Signs Temp Pulse Resp BP Pulse Ox O2 Del Method 09/17/24 14:38 36.6 C 80 16 132/69 94 Room Air 09/17/24 08:40 Room Air 09/17/24 07:19 36.6 C 85 16 135/68 94 Room Air PG Care Time/CCT Total # of Minutes Spent Total Time Spent with Patient: Total time spent is greater than 50% in coordination of care (as documented) at patient's floor/unit and/or counseling patient: Coding Level of Care Code 91085 SUB INP/OBS CARE 2/35MIN Diagnoses Ambulatory dysfunction R26.2 Osteoarthritis M19.90 Unable to bear weight on lower extremity R26.89
[2024-09-18 11:25] LABS: Hemoglobin 14.4 g/dl (14.0-18.0); Mean Corpuscular Hemoglobin 29.9 pg (25.0-34.0); Mean Corpuscular Hgb Conc 33.5 g/dL (32.0-36.0); Mean Corpuscular Volume 89.2 fL (80.0-100.0); Mean Platelet Volume 8.8 fL (9.4-12.4); Platelet Count 228 K/uL (130-400); RDW Coefficient of Variation 12.8 % (11.5-14.5); RDW Standard Deviation 41.8 fL (36.4-46.3); Red Blood Count 4.82 M/uL (4.70-6.10); White Blood Count 4.83 K/ul (4.8-10.8)
[2024-09-18 11:40] LABS: Bilirubin,Total 0.3 mg/dl (0.2-1.0); Potassium 3.7 mmol/L (3.5-5.1)
[2024-09-18 11:46] LABS: Albumin Globulin Ratio 1.1 (0.9-2); BUN Creatinine Ratio 16.5 (10-20); Globulin 3.6 gm/dl (2.5-4.0); Total Protein 7.6 gm/dl (6.0-8.3)
[2024-09-18 11:59] LABS: C Reactive Protein 2.18 mg/dl (0-0.5)
--- NOTE | 2024-09-18 15:27 | Hospitalist Progress Note ---
Date of Service September 18, 2024 Assessment & Plan (1) Ambulatory dysfunction: (2) Osteoarthritis: (3) Unable to bear weight on lower extremity: Plan Patient is a 54-year-old male with past medical history of microcephalus, intellectual disability, epilepsy, depression, and nonverbal. he presented from [employer] with his caregiver due to the ability to bear weight due to left hip pain. Patient is typically able to stand up and walk on his own. Patient was evaluated in the ED 09/13 in which x-rays and left venous Doppler were negative. Patient returned today 09/15 in which CRP was found to be 1.77, x-rays of bilateral knees and left hip showed osteoarthritis, otherwise diagnostic imaging including AP CT and hip CT were essentially negative. He is being admitted for ambulatory dysfunction to have PT OT evals, orthopedics team consulted, and to trend CRP. #Ambulatory dysfunction/inability to bear weight Suspect due to left hip pain, will not initiate step when attempt to stand up in ED caregiver reports no recent trauma Bilateral knee and hip x-rays show osteoarthritis AP CT and hip CT negative for acute changes left venous Doppler negative 09/13 CRP elevated 1.77 ( appears elevated at baseline, 2.55 05/2024); will trend CRP uric acid negative, 4.9 electrolytes stable CK, carbamazepine level, and tick borne panel ordered PT/OT ordered Consult orthopedics, may be considered for steroid injections? Tylenol prn, Toradol prn, and Oxycodone 5mg (for pain not relieved by #1 and 2) UA ordered fall and aspiration precautions per ortho 1) Left knee pain: He was seen and examined by Dr Dominguez, imaging including bone scan and xrays reviewed. It does look like he has a fracture of the patella osteophyte of the left knee. This does not need surgery. We will order a knee immobilizer and see how he tolerates wearing this. He would need to wear this for about a month. He can weight bear as tolerated on this. Chronic stable diagnoses: HLDcontinue atorvastatin Depressioncontinue buspirone, paroxetine, and fluoxetine intellectual disabilitycontinue Ativan 0.5mg daily epilepsycontinue carbamazepine, Keppra, and lamotrigine GERDcontinue Pepcid and PPI chronic constipationcontinue daily stool softeners VTE ppx: SCDs Diet: regular, home p.o. medications in applesauce/pudding Dispo: [facility] Admission and Anticipated Discharge Date Admission Date: September 15, 2024 Subjective found a patellar fracture in left knee. spoke to nursing and care management , they want him to go to higher level of care afraid they cant handle him and fall risk Physical Exam Physical Exam: patient is awake, nonverbal. HEENT- EOMI, mucous membranes moist. Hearing grossly intact. Heart-normal S1 and S2. No murmurs, rubs or gallops. Lungs-clear bilaterally, no respiratory distress, no accessory muscle use. Abdomen-normal bowel sounds and soft. No ascites noted. Non-tender. Extremities- no clubbing, cyanosis, or edema. Pain with palpation of bilateral knees. Results & Data Results & Data Vital Signs (Past 12 Hours) Vital Signs Temp Pulse Resp BP Pulse Ox O2 Del Method 09/18/24 07:40 36.4 C L 58 L 18 133/90 94 Room Air PG Care Time/CCT Total # of Minutes Spent Total Time Spent with Patient: Total time spent is greater than 50% in coordination of care (as documented) at patient's floor/unit and/or counseling patient: Coding Level of Care Code 34794 SUB INP/OBS CARE 2/35MIN Diagnoses Ambulatory dysfunction R26.2 Osteoarthritis M19.90 Unable to bear weight on lower extremity R26.89
[2024-09-18 21:28] LABS: Babesia microti DNA Not Detected (Not Detected)
[2024-09-19 07:56] LABS: Hematocrit (blood only) 42.1 % (42.0-52.0); Hemoglobin 13.9 g/dl (14.0-18.0); Mean Corpuscular Hemoglobin 29.4 pg (25.0-34.0); Mean Platelet Volume 8.7 fL (9.4-12.4); Platelet Count 186 K/uL (130-400); RDW Coefficient of Variation 13.1 % (11.5-14.5); RDW Standard Deviation 42.6 fL (36.4-46.3); Red Blood Count 4.73 M/uL (4.70-6.10)
[2024-09-19 08:09] LABS: Albumin Globulin Ratio 1.1 (0.9-2); Albumin Level 3.9 gm/dl (3.4-5.0); BUN Creatinine Ratio 14.3 (10-20); Bilirubin,Total 0.3 mg/dl (0.2-1.0); Calcium 9.1 mg/dl (8.6-10.3); Creatinine Clr Calc Pharmacy 100.8 ml/min; Globulin 3.4 gm/dl (2.5-4.0); Potassium 4.2 mmol/L (3.5-5.1); Total Protein 7.3 gm/dl (6.0-8.3)
[2024-09-19 08:47] VITALS: RESP 18
[2024-09-19] MEDS: INFLUENZA VACC TS2024-25(6m+)/PF (IIV3) 0.5mL Syr IM ONE (10:10)
--- NOTE | 2024-09-19 12:29 | Discharge Summary ---
Date of Service September 19, 2024 Admission HPI Per Admitting Provider Patient is a 54-year-old male with past medical history of microcephalus, intellectual disability, epilepsy, depression, and nonverbal. he presented from [facility] with his caregiver due to the ability to bear weight due to left hip pain. Patient is typically able to stand up and walk on his own. Patient was evaluated in the ED 09/13 in which x-rays and left venous Doppler were negative. Patient returned today 09/15 in which CRP was found to be 1.77, x-rays of bilateral knees and left hip showed osteoarthritis, otherwise diagnostic imaging including AP CT and hip CT were essentially negative. He is being admitted for ambulatory dysfunction to have PT OT caitlyn, orthopedics team consulted, and to trend CRP. Patient seen at bedside with caregiver present. She stated that on the patient developed what she believes to be knee pain, she is unsure of what leg or if it is his hip because he is nonverbal. He typically is able to assist with transfers to the wheelchair and walk at baseline, he has been unable to do so for several days. Patient does wince in pain when his knees are touched. She denies any trauma to the legs. He did receive his medications this morning. She believes he is full code, however she is reaching out to production planning manager and will update if changes. Patient is typically able to take his home medications in applesauce and is on a regular diet. Of note handoff from ER provider stated that patient will not initiate a step when tried to stand up patient and walk him. He does tolerate a leg roll. Admission Exam (Per Admitting) Constitutional Unable to get review of system patient is awake, nonverbal. HEENT- EOMI, mucous membranes moist. Hearing grossly intact. Heart-normal S1 and S2. No murmurs, rubs or gallops. Lungs-clear bilaterally, no respiratory distress, no accessory muscle use. Abdomen-normal bowel sounds and soft. No ascites noted. Non-tender. Extremities- no clubbing, cyanosis, or edema. Pain with palpation of bilateral knees. Discharge Data Consultations 09/15/24 11:07 ED Decision to Admit Stat 09/15/24 11:44 Consult Orthopedic Surgery Routine Hospital Course (1) Ambulatory dysfunction: (2) Osteoarthritis: (3) Unable to bear weight on lower extremity: Plan Patient is a 54-year-old male with past medical history of microcephalus, intellectual disability, epilepsy, depression, and nonverbal. he presented from [facility] with his caregiver due to the ability to bear weight due to left hip pain. Patient is typically able to stand up and walk on his own. Patient was evaluated in the ED 09/13 in which x-rays and left venous Doppler were negative. Patient returned today 09/15 in which CRP was found to be 1.77, x-rays of bilateral knees and left hip showed osteoarthritis, otherwise diagnostic imaging including AP CT and hip CT were essentially negative. He is being admitted for ambulatory dysfunction to have PT OT evals, orthopedics team consulted, and to trend CRP. #Ambulatory dysfunction/inability to bear weight Suspect due to left hip pain, will not initiate step when attempt to stand up in ED caregiver reports no recent trauma Bilateral knee and hip x-rays show osteoarthritis AP CT and hip CT negative for acute changes left venous Doppler negative 09/13 CRP elevated 1.77 ( appears elevated at baseline, 2.55 05/2024); will trend CRP uric acid negative, 4.9 electrolytes stable per ortho 1) Left knee pain: He was seen and examined by Dr Dominguez, imaging including bone scan and xrays reviewed. It does look like he has a fracture of the patella osteophyte of the left knee. This does not need surgery. We will order a knee immobilizer and see how he tolerates wearing this. He would need to wear this for about a month. He can weight bear as tolerated on this. Chronic stable diagnoses: HLDcontinue atorvastatin Depressioncontinue buspirone, paroxetine, and fluoxetine intellectual disabilitycontinue Ativan 0.5mg daily epilepsycontinue carbamazepine, Keppra, and lamotrigine GERDcontinue Pepcid and PPI chronic constipationcontinue daily stool softeners VTE ppx: SCDs Diet: regular, home p.o. medications in applesauce/pudding Dispo: Going to gets to a rehab facility where he can get physical therapy and weightbearing Coding Level of Care Code 01447 INP/OBS DISCH >30 MIN Diagnoses Ambulatory dysfunction R26.2 Osteoarthritis M19.90 Unable to bear weight on lower extremity R26.89
[2024-09-19 14:04] VITALS: BP 146/83; PULSE 82; TEMP 98.6; O2SAT 97
== END 2024-09-19 19:32 | DRG 543 ==
LOC: ED 08:28 → EDINP 11:43 → SUATTDRO 11:43 → 3N 14:28